=== PATIENT | male | born 1955 | race Caucasian/White ===

== ENCOUNTER 2017-07-27 14:45 | Inpatient (IN) | payer BC, MEDICARE ==
[2017-07-27] MEDS ORDERED: RX INFO: IV CONTRAST WAS GIVEN 1 EACH MISC MISCELLANE PRN (15:32)
[2017-07-27] MEDS ORDERED: HYDROmorphone 1 MG/ML 1 ML SYRINGE IVP STA ×2 (15:44→17:32)
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
[2017-07-27 16:01] LABS: Basophils % (A) 1 %; CH 36.6; CHCM 35.2; Eosinophils # (A) 0.2 k/uL (0-0.7); Eosinophils % (A) 4 %; HCT 45.4 % (39.0-53.0); HDW 2.81; HGB 15.9 gm/dL (13.0-17.5); Luc % (Auto) 2; Lymphocytes # (A) 1.2 k/uL (1.0-4.8); Lymphocytes % (A) 18 %; MCH 36.7 pg (25.0-35.0); MCHC 35.1 g/dL (31.0-37.0); MCV 104.7 fL (80.0-100.0); Macrocytosis Slight; Mean Platelet Volume 6.5; Monocytes # (A) 0.4 k/uL (0-1.0); Monocytes % (A) 6 %; Neutrophils # (A) 4.6 k/uL (1.3-7.7); Neutrophils % (A) 71 %; RBC 4.34 m/uL (4.30-5.90); RDW 13.2 % (11.5-15.5); WBC 6.5 k/uL (3.8-10.6); WBC (Perox) 6.19
[2017-07-27 16:12] LABS: ALT 95 U/L (21-72); AST 80 U/L (17-59); Alkaline Phosphatase 117 U/L (38-126); Anion Gap 12 mmol/L; Blood Urea Nitrogen 17 mg/dL (9-20); Calcium 9.1 mg/dL (8.4-10.2); Carbon Dioxide 23 mmol/L (22-30); Chloride 104 mmol/L (98-107); Glucose 199 mg/dL (74-99); Non-African American GFR(MDRD) >60 (>60 ml/min/1.73 sqM); Potassium 4.5 mmol/L (3.5-5.1); Sodium 139 mmol/L (137-145); Total Bilirubin 0.7 mg/dL (0.2-1.3); Total Protein 7.4 g/dL (6.3-8.2)
[2017-07-27 16:26] LABS: INR 1.1 (<1.2); Partial Thromboplastin Time 21.4 sec (22.0-30.0); Prothrombin Time 10.9 sec (9.0-12.0)
--- NOTE | 2017-07-27 16:33 | XR ---
EXAMINATION TYPE: XR forearm RT DATE OF EXAM: 07/27/2017 COMPARISON: NONE HISTORY: Pain Two views of the forearm demonstrate that the osseous structures appear to be intact and the joint sp aces appear to be preserved. There is no acute fracture or dislocation. Olecranon spur noted. IMPRESSION: 1. No acute fracture or dislocation
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
[2017-07-27] MEDS ORDERED: SODIUM CHLORIDE 0.9% 1,000 ML IV STA (17:32)
[2017-07-27] MEDS ORDERED: ACETAMINOPHEN IV (For NPO) 1,000 MG in SALINE 1 100ML.BAG IVPB ONE (18:06)
[2017-07-27] MEDS ORDERED: NALOXONE 0.4 MG/ML 1 ML VIAL IV PRN (18:06)
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
[2017-07-27 18:47] LABS: Creatine Kinase 297 U/L (55-170)
[2017-07-27 18:49] LABS: Glucose,Whole Blood 135 mg/dL (75-99)
[2017-07-27 19:00] LABS: Troponin I <0.012 ng/mL (0.000-0.034)
[2017-07-27 19:01] LABS: Creatine Kinase MB 5.6 ng/mL (0.0-2.4)
[2017-07-27] MEDS: HYDROmorphone 2 MG/ML 1 ML SYRINGE IVP PRN (21:46)
[2017-07-27 23:01] LABS: Appearance,Urine Clear (Clear); Bilirubin,Urine Negative (Negative); Glucose,Urine (UA) Negative (Negative); Ketones,Urine Negative (Negative); Leukocyte Esterase,Urine Negative (Negative); Nitrite,Urine Negative (Negative); PH, Urine 5.5 (5.0-8.0); Protein,Urine Trace (Negative); UA Billing (MACRO vs. MICRO) CHEM; Urobilinogen,Urine <2.0 mg/dL (<2.0)
[2017-07-27 23:49] VITALS: BMI 40.8
[2017-07-28 01:02] LABS: Specific Gravity,Urine >1.050 (1.001-1.035)
[2017-07-28] MEDS: HYDROmorphone 2 MG/ML 1 ML SYRINGE IVP PRN (02:54)
[2017-07-28 05:05] LABS: Basophils % (A) 0 %; CH 37.1; CHCM 34.7; Eosinophils # (A) 0.1 k/uL (0-0.7); Eosinophils % (A) 2 %; HCT 45.6 % (39.0-53.0); HDW 2.77; HGB 15.2 gm/dL (13.0-17.5); Luc % (Auto) 3; Lymphocytes # (A) 1.3 k/uL (1.0-4.8); Lymphocytes % (A) 20 %; MCH 35.8 pg (25.0-35.0); MCHC 33.3 g/dL (31.0-37.0); MCV 107.6 fL (80.0-100.0); Macrocytosis Moderate; Mean Platelet Volume 7.3; Monocytes # (A) 0.5 k/uL (0-1.0); Monocytes % (A) 8 %; Neutrophils # (A) 4.6 k/uL (1.3-7.7); Neutrophils % (A) 68 %; RBC 4.24 m/uL (4.30-5.90); RDW 13.9 % (11.5-15.5); WBC 6.8 k/uL (3.8-10.6); WBC (Perox) 6.29
[2017-07-28 05:12] LABS: INR 1.1 (<1.2); Prothrombin Time 11.4 sec (9.0-12.0)
[2017-07-28 05:14] LABS: Ionized Calcium 4.9 mg/dL (4.5-5.3)
[2017-07-28 05:19] LABS: Partial Thromboplastin Time 22.5 sec (22.0-30.0)
[2017-07-28 05:24] LABS: ALT 89 U/L (21-72); AST 65 U/L (17-59); Alkaline Phosphatase 111 U/L (38-126); Anion Gap 12 mmol/L; Blood Urea Nitrogen 17 mg/dL (9-20); Calcium 8.8 mg/dL (8.4-10.2); Carbon Dioxide 26 mmol/L (22-30); Chloride 105 mmol/L (98-107); Glucose 123 mg/dL (74-99); Magnesium 2.1 mg/dL (1.6-2.3); Non-African American GFR(MDRD) >60 (>60 ml/min/1.73 sqM); Phosphorous 4.1 mg/dL (2.5-4.5); Potassium 4.6 mmol/L (3.5-5.1); Sodium 143 mmol/L (137-145); Total Bilirubin 0.9 mg/dL (0.2-1.3); Total Protein 7.4 g/dL (6.3-8.2)
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
[2017-07-28] MEDS: PANTOPRAZOLE 40 MG/10 ML VIAL IV SCH (08:42)
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
[2017-07-28] MEDS ORDERED: KETOROLAC 30 MG/ML 1 ML VIAL IVP PRN (10:29)
[2017-07-28] MEDS: KETOROLAC 30 MG/ML 1 ML VIAL IVP PRN ×3 (10:51→23:29)
[2017-07-28] MEDS ORDERED: ONDANSETRON 4 MG/2 ML VIAL IVP PRN (11:51)
[2017-07-28] MEDS ORDERED: NALBUPHINE 10 MG/ML AMPUL IV PRN (11:51)
[2017-07-28] MEDS: BUPIVACAINE (PF) 0.5% 37.5 ML, fentaNYL (PF) 625 MCG in SODIUM CHLORIDE 0.9% 200 ML EPIDURAL PRN (12:22)
--- NOTE | 2017-07-28 13:34 | P.PCN ---
Date of Procedure: 07/28/17 Preoperative Diagnosis: traumatic rib fractures Postoperative Diagnosis: same Procedure(s) Performed: thoracic epidural catheter placement Anesthesia: local Surgeon: Yonas Mccullough Pathology: none sent Condition: stable Disposition: PACU Description of Procedure: The patient was seen and identified in the preoperative area. Risks, benefits, complications, and alternatives were discussed with the patient, including but not limited to bleeding, infection, nerve damage, allergic reactions to medications, and incomplete pain relief. The patient agreed to proceed with the procedure and signed the consent after all questions were answered. IV was started, and vital signs were stable. Patient was brought to the procedure area and time out was completed to confirm patient position, procedure, laterality of pain, and allergies. The patient was placed in the sitting position and a pillow was placed under the chest to reduce lumbar lordosis. The thoracic area was prepped and draped in the usual sterile fashion. Vital signs were closely monitored during the procedure. Using landmarks, the T6-T7 interlaminar space was identified and the skin over this site was marked and then infiltrated with 1% lidocaine subcutaneously in a right paramedian fashion. Subsequently, a 20-gauge 3.5-inch Tuohy epidural needle was inserted and advanced toward the epidural space using the Loss of resistance technique. After MARK was obtained at 7.5 cm from skin and after negative aspiration for blood and CSF, the space was dilated with 2 ml normal saline and the catheter was threaded into the space. Needle was then removed while counterthreading the catheter. In the absence of paresthesias, a test dose of PF 1.5% lidocaine with epinephrine was injected without any increase in heart rate or significant weakness in the lower extremities, and the patient had some relief of his right sided chest pain. Catheter was secured to the skin with Tegaderm and tape. COMPLICATIONS: None COMMENTS: DISPOSITION / PLANS: The patient was placed in a supine position and transferred to the back to the ICU in a stable condition for observation. There was no evidence of lower extremity motor or sensory deficit after the procedure. Epidural solution was ordered and the patient will be followed in the next 24 hours to evaluate his analgesia.
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
[2017-07-29 05:17] LABS: Basophils % (A) 0 %; CH 36.2; CHCM 33.6; Eosinophils # (A) 0.4 k/uL (0-0.7); Eosinophils % (A) 6 %; HCT 42.4 % (39.0-53.0); HDW 2.73; HGB 14.3 gm/dL (13.0-17.5); Luc # (Auto) 0.16; Luc % (Auto) 3; Lymphocytes # (A) 1.8 k/uL (1.0-4.8); Lymphocytes % (A) 29 %; MCH 36.6 pg (25.0-35.0); MCHC 33.8 g/dL (31.0-37.0); MCV 108.3 fL (80.0-100.0); Macrocytosis Moderate; Mean Platelet Volume 6.7; Monocytes # (A) 0.5 k/uL (0-1.0); Monocytes % (A) 8 %; Neutrophils # (A) 3.5 k/uL (1.3-7.7); Neutrophils % (A) 55 %; RBC 3.92 m/uL (4.30-5.90); RDW 13.2 % (11.5-15.5); WBC 6.3 k/uL (3.8-10.6); WBC (Perox) 6.37
[2017-07-29 05:20] LABS: Ionized Calcium 4.9 mg/dL (4.5-5.3)
[2017-07-29 05:24] LABS: ALT 76 U/L (21-72); AST 43 U/L (17-59); Alkaline Phosphatase 97 U/L (38-126); Anion Gap 9 mmol/L; Blood Urea Nitrogen 21 mg/dL (9-20); Calcium 8.8 mg/dL (8.4-10.2); Carbon Dioxide 23 mmol/L (22-30); Chloride 108 mmol/L (98-107); Glucose 101 mg/dL (74-99); Non-African American GFR(MDRD) >60 (>60 ml/min/1.73 sqM); Phosphorous 3.4 mg/dL (2.5-4.5); Sodium 140 mmol/L (137-145); Total Bilirubin 0.8 mg/dL (0.2-1.3); Total Protein 6.8 g/dL (6.3-8.2)
[2017-07-29 05:32] LABS: INR 1.1 (<1.2); Prothrombin Time 11.1 sec (9.0-12.0)
[2017-07-29 05:36] LABS: Partial Thromboplastin Time 18.2 sec (22.0-30.0)
[2017-07-29] MEDS ORDERED: Magnesium Replacement Protocol 1 EACH MISC MISCELLANE PRN (06:07)
[2017-07-29] MEDS: MAGNESIUM SULFATE-D5W PMX 1 GM in DEXTROSE/WATER 1 100ML.BAG IVPB SCH ×2 (07:11→08:36)
[2017-07-29] MEDS: PANTOPRAZOLE 40 MG/10 ML VIAL IV SCH (08:36)
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
[2017-07-29] MEDS: BUPIVACAINE (PF) 0.5% 37.5 ML, fentaNYL (PF) 625 MCG in SODIUM CHLORIDE 0.9% 200 ML EPIDURAL PRN (16:38)
[2017-07-29] MEDS: KETOROLAC 30 MG/ML 1 ML VIAL IVP PRN (17:19)
[2017-07-29 22:17] VITALS: RESP 16
[2017-07-30] MEDS: KETOROLAC 30 MG/ML 1 ML VIAL IVP PRN ×2 (05:38→20:49)
[2017-07-30] MEDS: diphenhydrAMINE 50 MG/ML 1 ML VIAL IVP PRN ×2 (05:39→20:49)
[2017-07-30 07:27] LABS: Basophils % (A) 0 %; CH 37.5; CHCM 35.3; Eosinophils # (A) 0.4 k/uL (0-0.7); Eosinophils % (A) 6 %; HCT 41.2 % (39.0-53.0); HDW 2.73; HGB 13.8 gm/dL (13.0-17.5); Luc # (Auto) 0.19; Luc % (Auto) 3; Lymphocytes # (A) 1.2 k/uL (1.0-4.8); Lymphocytes % (A) 18 %; MCH 35.7 pg (25.0-35.0); MCHC 33.4 g/dL (31.0-37.0); MCV 106.8 fL (80.0-100.0); Macrocytosis Moderate; Mean Platelet Volume 7.3; Monocytes # (A) 0.4 k/uL (0-1.0); Monocytes % (A) 6 %; Neutrophils # (A) 4.4 k/uL (1.3-7.7); Neutrophils % (A) 66 %; RBC 3.85 m/uL (4.30-5.90); RDW 13.4 % (11.5-15.5); WBC 6.7 k/uL (3.8-10.6); WBC (Perox) 7.08
[2017-07-30 07:49] LABS: Ionized Calcium 4.7 mg/dL (4.5-5.3)
[2017-07-30 07:50] LABS: INR 1.1 (<1.2); Partial Thromboplastin Time 23.4 sec (22.0-30.0); Prothrombin Time 10.9 sec (9.0-12.0)
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
[2017-07-30 08:15] LABS: ALT 67 U/L (21-72); AST 49 U/L (17-59); Alkaline Phosphatase 88 U/L (38-126); Anion Gap 9 mmol/L; Blood Urea Nitrogen 20 mg/dL (9-20); Calcium 8.5 mg/dL (8.4-10.2); Carbon Dioxide 22 mmol/L (22-30); Chloride 107 mmol/L (98-107); Glucose 94 mg/dL (74-99); Magnesium 1.9 mg/dL (1.6-2.3); Non-African American GFR(MDRD) >60 (>60 ml/min/1.73 sqM); Phosphorous 3.9 mg/dL (2.5-4.5); Potassium 4.2 mmol/L (3.5-5.1); Sodium 138 mmol/L (137-145); Total Bilirubin 1.1 mg/dL (0.2-1.3); Total Protein 6.3 g/dL (6.3-8.2)
[2017-07-30] MEDS: PANTOPRAZOLE 40 MG TABLET PO SCH (09:06)
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
[2017-07-30] MEDS: MAGNESIUM SULFATE-D5W PMX 1 GM in DEXTROSE/WATER 1 100ML.BAG IVPB SCH ×2 (10:54→12:00)
[2017-07-30] MEDS: BUPIVACAINE (PF) 0.5% 37.5 ML, fentaNYL (PF) 625 MCG in SODIUM CHLORIDE 0.9% 200 ML EPIDURAL PRN (12:36)
--- NOTE | 2017-07-30 16:21 | P.PN ---
Progress Note - Text The patient is resting comfortably in his chair. He has no significant complaints. His chest x-ray shows stable 10% pneumothorax On exam his vital signs are stable. His abdomen soft. Chest is clear. Patient will have removal of his epidural tomorrow. If he is doing well he'll be discharged home.
[2017-07-31 07:12] VITALS: TEMP 98
[2017-07-31] MEDS: PANTOPRAZOLE 40 MG TABLET PO SCH (08:42)
[2017-07-31 08:43] LABS: Basophils % (A) 1 %; CH 36.6; CHCM 34.7; Eosinophils # (A) 0.6 k/uL (0-0.7); Eosinophils % (A) 9 %; HCT 44.6 % (39.0-53.0); HDW 2.85; HGB 15.6 gm/dL (13.0-17.5); Luc # (Auto) 0.15; Luc % (Auto) 2; Lymphocytes # (A) 1.3 k/uL (1.0-4.8); Lymphocytes % (A) 20 %; MCHC 34.9 g/dL (31.0-37.0); MCV 106.1 fL (80.0-100.0); Macrocytosis Moderate; Mean Platelet Volume 6.5; Monocytes # (A) 0.4 k/uL (0-1.0); Monocytes % (A) 5 %; Neutrophils # (A) 4.2 k/uL (1.3-7.7); Neutrophils % (A) 64 %; RBC 4.21 m/uL (4.30-5.90); WBC 6.6 k/uL (3.8-10.6); WBC (Perox) 6.86
[2017-07-31 08:53] LABS: INR 1.1 (<1.2); Partial Thromboplastin Time 23.6 sec (22.0-30.0)
[2017-07-31 09:04] LABS: ALT 79 U/L (21-72); AST 50 U/L (17-59); Alkaline Phosphatase 114 U/L (38-126); Anion Gap 10 mmol/L; Blood Urea Nitrogen 20 mg/dL (9-20); Carbon Dioxide 25 mmol/L (22-30); Chloride 103 mmol/L (98-107); Glucose 90 mg/dL (74-99); Non-African American GFR(MDRD) >60 (>60 ml/min/1.73 sqM); Phosphorous 3.8 mg/dL (2.5-4.5); Potassium 4.2 mmol/L (3.5-5.1); Sodium 138 mmol/L (137-145); Total Bilirubin 1.2 mg/dL (0.2-1.3)
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
[2017-07-31 09:14] LABS: Ionized Calcium 4.9 mg/dL (4.5-5.3)
[2017-07-31] MEDS: BUPIVACAINE (PF) 0.5% 37.5 ML, fentaNYL (PF) 625 MCG in SODIUM CHLORIDE 0.9% 200 ML EPIDURAL PRN (11:45)
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
[2017-07-31] MEDS ORDERED: HYDROcodone/APAP 7.5-325MG 1 EACH TAB PO PRN (12:12)
[2017-07-31 14:46] VITALS: BP 132/79; PULSE 74
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
== END 2017-07-31 18:45 | disposition home or self-care (01) | DRG 199 ==
LOC: EC 14:45 → 6ICU 18:09 → 3SUR 07-29 15:24
PROVIDERS: ADMIT Surgery; ATTEND Surgery
PROC: 3E0R3CZ (ICD-10-PCS; 2017-07-28)
PROC: 00HU33Z Insertion of Infusion Device into Spinal Canal, Percutaneous Approach (ICD-10-PCS; principal; 2017-07-28 11:00)
DX: S27.0XXA Traumatic pneumothorax, initial encounter (principal); S22.5XXA Flail chest, initial encounter for closed fracture; J98.11 Atelectasis; G62.9 Polyneuropathy, unspecified; S50.11XA Contusion of right forearm, initial encounter; G25.81 Restless legs syndrome; E78.5 Hyperlipidemia, unspecified; I10 Essential (primary) hypertension; F32.9 Major depressive disorder, single episode, unspecified; F41.9 Anxiety disorder, unspecified; Z79.899 Other long term (current) drug therapy; Z96.652 Presence of left artificial knee joint; Z87.891 Personal history of nicotine dependence; V86.59XA Driver of other special all-terrain or other off-road motor vehicle injured in nontraffic accident, initial encounter
CPT/HCPCS: 36415; 62325; 71010; 71260; 74177; 80053; 80306; 80320; 81003; 82330; 82550; 82553; 83735; 84100; 84484; 85025; 85610; 85730; 86850; 86900; 86901; 94760; 96361; 96374; 96376; 99285

== ENCOUNTER → 2018-12-05 | Outpatient (CLI) | payer MEDICARE, BC ==
[~2018-12-05] MED LIST: REGADENOSON 0.4 MG/5 ML SYRINGE IV ONE
--- NOTE | 2018-12-05 11:34 | NM ---
EXAMINATION TYPE: NM stress cardiolite complete DATE OF EXAM: 12/05/2018 COMPARISON: NONE HISTORY: Precordial chest pain and abnormal EKG TECHNIQUE: After the intravenous administration of 10.2 mCi Tc 99m Sestamibi - Rest images obtained 75 minutes post injection. The patient exercised using a DIOMEDES protocol and 1 minute prior to peak exercise was injected with 26.7 mCi Tc 99m Sestamibi - Stress images obtained 35 minutes post injecti on. FINDINGS: Targeted heart rate was achieved during performance of the study. Review of stress and rest SPECT andrea ges decreased perfusion at stress imaging involving the anteroseptal wall and cardiac apex compatible with stress-induced ischemia. Gated analysis shows normal wall motion with an estimated left ventric ular ejection fraction of 54 %. IMPRESSION: Stress induced ischemia involving the anteroseptal wall and cardiac apex.
--- NOTE | 2018-12-06 10:59 | EST ---
- Stress Test Note Stress Test Results/Findings: Exam Performed: NM stress lexiscan cardiolite Exam Date: 12/05/18 Reason for Exam: Dyspnea Height: 5 ft 10 in Weight: 129.274 kg Protocol: Mary Scan Stage: na Duration of Exercise: na Resting Heart Rate: 61 Resting Blood Pressure: 116/68 Maximum Achieved Heart Rate: 74 Maximum Achieved Blood Pressure: 126/76 85% PMHR: na 100% PMHR: na METS: na Technologist Comment: Stress Test Results/Findings: Baseline heart rate 61 beats a minute Baseline blood pressure 116/68 mmHg The center ECG shows sinus rhythm without any ST segment abnormalities Patient received Lexiscan infusion per protocol no ECG evidence for ischemia no arrhythmias noted very occasional PVCs Nuclear portion will be reported separately MTDD
== END | disposition home or self-care (01) ==
LOC: RADNMMAIN 07:43
PROVIDERS: ATTEND Internal Medicine
DX: I25.89 Other forms of chronic ischemic heart disease (principal)
CPT/HCPCS: 93017; 78452; A9500

== ENCOUNTER → 2018-12-12 | Outpatient (CLI) | payer MEDICARE, BC ==
[2018-12-12 12:33] LABS: HCT 44.1 % (39.0-53.0); HGB 15.1 gm/dL (13.0-17.5); MCH 35.7 pg (25.0-35.0); MCHC 34.3 g/dL (31.0-37.0); Macrocytosis Slight; Mean Platelet Volume 6.1; Platelet Count 205 k/uL (150-450); RBC 4.24 m/uL (4.30-5.90); RDW 12.9 % (11.5-15.5); WBC 4.8 k/uL (3.8-10.6)
[2018-12-12 13:05] LABS: Anion Gap 9 mmol/L; Blood Urea Nitrogen 15 mg/dL (9-20); Carbon Dioxide 25 mmol/L (22-30); Chloride 106 mmol/L (98-107); Potassium 4.5 mmol/L (3.5-5.1); Sodium 140 mmol/L (137-145)
== END | disposition home or self-care (01) ==
LOC: LABPAT 11:01
PROVIDERS: ATTEND Internal Medicine Cardiovascular Disease
DX: Z01.812 Encounter for preprocedural laboratory examination (principal); E78.2 Mixed hyperlipidemia; I10 Essential (primary) hypertension; I20.9 Angina pectoris, unspecified
CPT/HCPCS: 36415; 80051; 82565; 84520; 85027

== ENCOUNTER → 2018-12-19 | Day surgery (SDC) | payer MEDICARE, BC ==
[2018-12-12 15:12] VITALS: BMI 40.8
[~2018-12-19] MED LIST changes: +ALPRAZolam 0.25 MG TAB PO PRN; +ALPRAZolam 0.5 MG TAB PO PRN; +ASPIRIN 325 MG TAB PO STA; +ATORVASTATIN 80 MG TAB PO STA; +HEPARIN SODIUM 1,000 UN/ML (10ML VL) IV ONE; +HEPARIN SODIUM 1,000 UN/ML (10ML VL) ONE; +IOPAMIDOL-370 125ML BTL INJ ONE; +LIDOCAINE 1% INJ 10MG/ML (20 ML MDV) ONE; +LIDOCAINE 1% INJ 10MG/ML (20 ML MDV) SQ ONE; +MIDAZOLAM 2 MG/2 ML VIAL IVP ONE; +NITROGLYCERIN SL TABS 0.4 MG TAB SUBLINGUAL PRN; -REGADENOSON 0.4 MG/5 ML SYRINGE IV ONE; +RX INFO: IV CONTRAST WAS GIVEN 1 EACH MISC MISCELLANE PRN; +SODIUM CHLORIDE 0.9% 1,000 ML IV SCH; +SODIUM CHLORIDE 0.9% 1,000 ML in EMPTY BAG 1 BAG IV ONE; +VERAPAMIL 2.5 MG/ML 2 ML AMP ONE; +fentaNYL (PF) 50 MCG/ML 2 ML AMP IV ONE; +fentaNYL (PF) 50 MCG/ML 2 ML AMP ONE
[2018-12-19 07:01] VITALS: RESP 18; TEMP 98
[2018-12-19] MEDS: VERAPAMIL SYRINGE (5 MG/10 ML) INTRAARTER ONE ×2 (08:06→08:53)
--- NOTE | 2018-12-19 08:52 | P.CARDCATH ---
Date of Procedure: 12/19/18 Preoperative Diagnosis: Recent onset angina, exertional. Positive stress test Postoperative Diagnosis: Significant lesion involving the LAD and diagonal Procedure(s) Performed: Left heart catheterization without left ventriculography Description of Procedure: HISTORY: This is a 63-year-old gentleman with history of hypertension and hyperlipidemia and family history of ischemic heart disease and also previous history of smoking who was recently experiencing exertional shortness of breath and left arm discomfort. The patient had a stress test at the hospital which showed evidence of ischemia involving the anteroseptal area. Patient is advised to have a cardiac catheterization for definitive diagnosis CONSENT:I have discussed the risks, benefits and alternative therapies for the above-mentioned procedure and for both sedation/analgesia as well as necessary blood product administration, if indicated, as they pertain to this patient. The patient has indicated understanding and acceptance of the risks and procedures discussed. PROCEDURE: Patient was brought to the lab in a fasting state. Patient was given some IV sedation. The right wrist is infiltrated with lidocaine and right radial artery was entered using Seldinger technique. A 6-Russian catheter was left in place and selective coronary arteriography was performed. Patient tolerated the procedure well. TR band was applied for hemostasis. No immediate complications were noted and patient was transferred to [facility] in a stable condition. Conscious Sedation: Versed 1mg Fentanyl 75 g Duration 30minutes HEMODYNAMICS: The aortic pressure is about 130/70. Left ventricle end- diastolic pressure is about 25. There was no gradient across the aortic valve SELECTIVE CORONARY ARTERIOGRAPHY: LEFT MAIN: Ectatic and dilated. There appears to be an eccentric plaque in circumflex views. THE LEFT ANTERIOR DESCENDING CORONARY ARTERY: Heavily calcified and diffuse disease involving the proximal portion with 80% stenosis proximally followed by a 99% stenosis. The distal LAD appears to be relatively small in caliber but could be related to slow flow THE LEFT CIRCUMFLEX AND IS CORONARY ARTERY: Good caliber vessel giving rise to a reasonable good-sized OM branch. There is mild diffuse disease with about 50-60% stenosis of the OM branch THE RIGHT CORONARY ARTERY: Dominent vessel giving rise to PDA and PLV. Mild diffuse disease especially involving the distal branches of PLV and PDA. LEFT VENTRICULOGRAPHY: Was not performed FINAL IMPRESSION: Diffuse disease with heavily calcified and left coronary system. 99% stenosis of the LAD and about 95% stenosis of the diagonal. There is an intermediate disease in the OM branch of the circumflex. The left main is ectatic possible eccentric plaque PLAN:. The films are reviewed with the Dr. Irene the division head parent partner. He felt patient is better off having bypass surgery. A surgical opinion is being of obtained. PROGNOSIS: Guarded
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
--- NOTE | 2018-12-19 11:13 | US ---
EXAMINATION TYPE: US carotid duplex BILAT DATE OF EXAM: 12/19/2018 COMPARISON: NONE CLINICAL HISTORY: Pre-Op Surgery, Ankle Brachial Index ([place]) . EXAM MEASUREMENTS: RIGHT: Peak Systolic Velocity (PSV) cm/sec ----- Right CCA: 63.6 ----- Right ICA: 70.2 ----- Right ECA: 77.9 ICA/CCA ratio: 1.1 RIGHT: End Diastole cm/sec ----- Right CCA: 16.4 ----- Right ICA: 23.0 ----- Right ECA: 12.0 LEFT: Peak Systolic Velocity (PSV) cm/sec ----- Left CCA: 95.1 ----- Left ICA: 104.7 ----- Left ECA: 81.3 ICA/CCA ratio: 1.1 LEFT: End Diastole cm/sec ----- Left CCA: 0.0 ----- Left ICA: 18.0 ----- Left ECA: 12.5 VERTEBRALS (direction of flow): Right Vertebral: Antegrade Left Vertebral: Antegrade Rhythm: Normal Mild plaque, no significant velocity elevations. IMPRESSION: Mild plaque with no significant hemodynamic stenosis identified bilaterally. Criteria for Assigning % of Stenosis / Diameter reduction (Estimation based on the indirect measurements of the internal carotid artery velocities (ICA PSV). 1. Normal (no stenosis)=ICA PSV < 125 cm/s: ratio < 2.0: ICA EDV<40 cm/s. 2. Less than 50% stenosis=ICA PSV < 125 cm/s: ratio < 2.0: ICA EDV<40 cm/s. 3. 50 to 69% stenosis=ICA PSV of 125 to 230 cm/s: ration 2.0 ? 4.0: ICA EDV 40-100 cm/s. 4. Greater than 70% stenosis to near occlusion= ICA PSV > 230 cm/s: ratio > 4.0: ICA EDV > 100 cm/s. 5. Near occlusion= ICA PSV velocities may be low or undetectable: variable ratio and ICA EDV. 6. Total occlusion=unable to detect flow.
[2018-12-19 11:58] VITALS: PULSE 58
[2018-12-19 12:00] VITALS: BP 109/64
--- NOTE | 2018-12-19 13:19 | XR ---
EXAMINATION TYPE: XR chest 1V portable DATE OF EXAM: 12/19/2018 COMPARISON: 07/31/2017 HISTORY: Preop TECHNIQUE: Single frontal view of the chest is obtained. FINDINGS: Chronic bilateral rib deformities are seen. The heart is enlarged and there is a diffuse i nterstitial pattern. Postsurgical change left shoulder. No pneumothorax. No new consolidation. IMPRESSION: 1. Chronic appearing interstitial changes may been the basis of pulmonary fibrosis. Interstitial pneu monitis or venous congestion in the differential diagnosis, correlate clinically.
[2018-12-19 13:43] LABS: Basophils % (A) 1 %; Eosinophils # (A) 0.3 k/uL (0-0.7); Eosinophils % (A) 6 %; HCT 43.7 % (39.0-53.0); Lymphocytes # (A) 1.8 k/uL (1.0-4.8); Lymphocytes % (A) 39 %; MCH 35.5 pg (25.0-35.0); MCHC 34.3 g/dL (31.0-37.0); MCV 103.4 fL (80.0-100.0); Macrocytosis Slight; Monocytes # (A) 0.3 k/uL (0-1.0); Monocytes % (A) 8 %; Neutrophils # (A) 1.9 k/uL (1.3-7.7); Neutrophils % (A) 43 %; Platelet Count 179 k/uL (150-450); RBC 4.23 m/uL (4.30-5.90); WBC 4.5 k/uL (3.8-10.6)
[2018-12-19 13:54] LABS: Partial Thromboplastin Time 23.5 sec (22.0-30.0); Prothrombin Time 10.7 sec (9.0-12.0)
[2018-12-19 14:13] LABS: ALT 46 U/L (21-72); AST 35 U/L (17-59); Albumin 3.9 g/dL (3.5-5.0); Alkaline Phosphatase 89 U/L (38-126); Anion Gap 6 mmol/L; Blood Urea Nitrogen 21 mg/dL (9-20); Calcium 8.8 mg/dL (8.4-10.2); Carbon Dioxide 28 mmol/L (22-30); Chloride 105 mmol/L (98-107); Cholesterol 161 mg/dL (<200); Glucose 126 mg/dL (74-99); HDL Cholesterol 28 mg/dL (40-60); Magnesium 2.2 mg/dL (1.6-2.3); Potassium 4.4 mmol/L (3.5-5.1); Sodium 139 mmol/L (137-145); Total Bilirubin 0.7 mg/dL (0.2-1.3); Total Protein 6.8 g/dL (6.3-8.2); Triglycerides 449 mg/dL (<150)
[2018-12-19 14:37] LABS: Appearance,Urine Clear (Clear); Bilirubin,Urine Negative (Negative); Blood,Urine Negative (Negative); Color,Urine Yellow; Glucose,Urine (UA) Trace (Negative); Ketones,Urine Negative (Negative); Leukocyte Esterase,Urine Negative (Negative); Nitrite,Urine Negative (Negative); PH, Urine 6.5 (5.0-8.0); Protein,Urine Negative (Negative); Specific Gravity,Urine 1.038 (1.001-1.035); Urobilinogen,Urine <2.0 mg/dL (<2.0)
[2018-12-19 22:22] LABS: Hemoglobin A1C 5.8 % (4.0-6.0)
[2018-12-19 22:24] LABS: Hepatitis A Antibody IgM Non-Reactive (Non-Reactive); Hepatitis B Core IgM Non-Reactive (Non-Reactive)
--- NOTE | 2018-12-20 12:37 | ECHOF ---
Referral Reason:preop CABG, assess LV, valves MEASUREMENTS -------- HEIGHT: 177.8 cm WEIGHT: 129.3 kg BP: 109/62 RVIDd: 3.3 cm (< 3.3) IVSd: 1.1 cm (0.6 - 1.1) LVIDd: 4.2 cm (3.9 - 5.3) LVPWd: 1.1 cm (0.6 - 1.1) IVSs: 1.5 cm LVIDs: 2.4 cm LVPWs: 1.6 cm LAESV Index (A-L): 24.33 ml/m Ao Diam: 3.5 cm (2.0 - 3.7) AV Cusp: 1.8 cm (1.5 - 2.6) LA Diam: 3.7 cm (2.7 - 3.8) MV E Estiven: 0.79 m/s MV DecT: 264 ms MV A Estiven: 0.91 m/s MV E/A Ratio: 0.86 RAP: 5.00 mmHg RVSP: 27.63 mmHg MV EF SLOPE: 101.89 mm/s (70 - 150) MV EXCURSION: 1.85 cm (> 18.000) FINDINGS -------- Sinus rhythm. This was a technically difficult study with suboptimal views. The left ventricular size is normal. There is borderline concentric left ventricular hypertrophy. Overall left ventricular systolic function is normal with, an EF between 55 - 60 %. The right ventricle is mildly enlarged. Normal LA size by volume 22+/-6 ml/m2. The right atrium was not well visualized. 3 ml of Lumason was utilized for enhancement of images. There is mild aortic valve sclerosis. There is no evidence of aortic regurgitation. There is no e vidence of aortic stenosis. The mitral valve leaflets are mildly thickened. There is trace to mild mitral regurgitation. Trace tricuspid regurgitation present. Right ventricular systolic pressure is normal at < 35 mmHg. There is no evidence of pulmonary hypertension. The pulmonic valve was not well visualized. The aortic root size is normal. Normal inferior vena cava with normal inspiratory collapse consistent with estimated right atrial pre ssure of 5 mmHg. There is no pericardial effusion. CONCLUSIONS -------- 1. Sinus rhythm. 2. This was a technically difficult study with suboptimal views. 3. The left ventricular size is normal. 4. There is borderline concentric left ventricular hypertrophy. 5. Overall left ventricular systolic function is normal with, an EF between 55 - 60 %. 6. The right ventricle is mildly enlarged. 7. Normal LA size by volume 22+/-6 ml/m2. 8. The right atrium was not well visualized. 9. 3 ml of Lumason was utilized for enhancement of images. 10. There is mild aortic valve sclerosis. 11. The mitral valve leaflets are mildly thickened. 12. There is trace to mild mitral regurgitation. 13. Trace tricuspid regurgitation present. 14. Right ventricular systolic pressure is normal at < 35 mmHg. 15. There is no evidence of pulmonary hypertension. 16. The pulmonic valve was not well visualized. 17. The aortic root size is normal. 18. There is no pericardial effusion. STEVEDORING SUPERVISOR: Georgi Gautam RDCS
== END | disposition home or self-care (01) ==
LOC: CATHCVL 06:26
PROVIDERS: ATTEND Internal Medicine Cardiovascular Disease
DX: I25.110 Atherosclerotic heart disease of native coronary artery with unstable angina pectoris (principal); I10 Essential (primary) hypertension; E78.5 Hyperlipidemia, unspecified; F17.211 Nicotine dependence, cigarettes, in remission; G47.33 Obstructive sleep apnea (adult) (pediatric); G25.81 Restless legs syndrome; E66.01 Morbid (severe) obesity due to excess calories; E78.00 Pure hypercholesterolemia, unspecified; F32.9 Major depressive disorder, single episode, unspecified; Z82.49 Family history of ischemic heart disease and other diseases of the circulatory system; Z96.652 Presence of left artificial knee joint; Z99.89 Dependence on other enabling machines and devices; Z79.899 Other long term (current) drug therapy; Z87.01 Personal history of pneumonia (recurrent); Z79.82 Long term (current) use of aspirin; Z87.81 Personal history of (healed) traumatic fracture; Z68.41 Body mass index [BMI] 40.0-44.9, adult
CPT/HCPCS: 94150; 93458; 80061; 80053; 80074; 84443; 83735; 85025; 85610; 85730; 81003; 87070; 83036; 71045; 93970; 93880; C8929; C1894 ×2; C1769 ×2; J2250; J2001; J3010; J1644; Q9950; Q9967; 93306

== ENCOUNTER → 2019-01-03 | Outpatient (CLI) | payer MEDICARE, BC ==
[2019-01-03 11:07] LABS: HCT 45.3 % (39.0-53.0); HGB 15.2 gm/dL (13.0-17.5); MCH 34.8 pg (25.0-35.0); MCHC 33.4 g/dL (31.0-37.0); MCV 104.2 fL (80.0-100.0); Macrocytosis Slight; Platelet Count 202 k/uL (150-450); RBC 4.35 m/uL (4.30-5.90); RDW 13.2 % (11.5-15.5); WBC 5.2 k/uL (3.8-10.6)
[2019-01-03 11:13] LABS: Partial Thromboplastin Time 23.6 sec (22.0-30.0); Prothrombin Time 10.6 sec (9.0-12.0)
[2019-01-03 11:27] LABS: ALT 47 U/L (21-72); AST 32 U/L (17-59); Albumin 4.2 g/dL (3.5-5.0); Alkaline Phosphatase 111 U/L (38-126); Anion Gap 9 mmol/L; Blood Urea Nitrogen 17 mg/dL (9-20); Calcium 9.2 mg/dL (8.4-10.2); Carbon Dioxide 25 mmol/L (22-30); Chloride 107 mmol/L (98-107); Glucose 114 mg/dL (74-99); Potassium 4.4 mmol/L (3.5-5.1); Sodium 141 mmol/L (137-145); Total Bilirubin 0.7 mg/dL (0.2-1.3); Total Protein 7.5 g/dL (6.3-8.2)
--- NOTE | 2019-01-11 08:57 | P.ARTDOP ---
Arterial Doppler Bilateral radial artery studies Date of study: 01/03/2019 Reason for study: Preop CABG Doppler assessment shows no significant right to left or segmental pressure gradients. Digital plethysmography with radial artery compression shows a dramatic decrease in pressure and signal with right radial artery compression. There are no significant changes on the left. Imaging shows the size on the right radial between 4.0 x 3.0 distally to 3.8 x 4.0 proximally. On the left it measures between 3.4 x 3.0 distally and 3.6 x 3.1 proximally Impression: Right radial artery is not usable. The left appears to be usable by size and collateralization.
== END | disposition home or self-care (01) ==
LOC: LABPAT 10:13
PROVIDERS: ATTEND Surgery
DX: Z01.818 Encounter for other preprocedural examination (principal); I25.10 Atherosclerotic heart disease of native coronary artery without angina pectoris; Z01.812 Encounter for preprocedural laboratory examination
CPT/HCPCS: 36415; 80053; 85027; 85610; 85730; 93923; 93930

== ENCOUNTER 2019-01-09 05:40 | Inpatient (IN) | payer MEDICARE, BC ==
[~2019-01-09 05:40] MED LIST changes: +ALBUMIN HUMAN 25% 50 ML IV ONE; +ALBUMIN HUMAN 5% 500 ML IVPB ONE; -ALPRAZolam 0.25 MG TAB PO PRN; -ALPRAZolam 0.5 MG TAB PO PRN; +ASPIRIN 325 MG TAB PO ONE; -ASPIRIN 325 MG TAB PO STA; +ATORVASTATIN 10 MG TAB PO ONE; -ATORVASTATIN 80 MG TAB PO STA; +CALCIUM CHLORIDE 100 MG/ML 10 ML SYRINGE IV ONE; +CHLORHEXIDINE GLUCONATE 15 ML CUP MUCOUS MEM ONE; +CLEVIDIPINE BUTYRATE 25 MG in EMPTY BAG 1 BAG IV ONE; +DEXTROSE 5% IN WATER 1,000 ML with POTASSIUM CHLORIDE 110 MEQ, MAGNESIUM SULFATE 16 MEQ... IV ONE; +DEXTROSE 5% IN WATER 1,000 ML with POTASSIUM CHLORIDE 25 MEQ, SODIUM CHLORIDE 2.5MEQ/ML... IRRIGATION ONE; +DILTIAZEM 125 MG in SODIUM CHLORIDE 0.9% 100 ML IV ONE; -HEPARIN SODIUM 1,000 UN/ML (10ML VL) ONE; +HEPARIN SODIUM,PORCINE 5,000 UNIT in SODIUM CHLORIDE 0.9% 500 ML 500 ML IV ONE; +INSULIN REGULAR 100 UNIT in SODIUM CHLORIDE 0.9% 100 ML IV ONE; -IOPAMIDOL-370 125ML BTL INJ ONE; +LACTATED RINGERS 1,000 ML IV ONE; -LIDOCAINE 1% INJ 10MG/ML (20 ML MDV) ONE; -LIDOCAINE 1% INJ 10MG/ML (20 ML MDV) SQ ONE; +MAGNESIUM SULFATE MG 500 MG/ML IV ONE; +MANNITOL 25% 12.5 GM/50 ML VIAL IV ONE; +METOPROLOL TARTRATE 12.5 MG TAB PO ONE; -MIDAZOLAM 2 MG/2 ML VIAL IVP ONE; +MUPIROCIN 2% OINT 22 GM TUBE NASAL ONE; +NITROGLYCERIN SL TABS 0.4 MG TAB SUBLINGUAL ONE; -NITROGLYCERIN SL TABS 0.4 MG TAB SUBLINGUAL PRN; +NITROGLYCERIN-D5W PMX 25 MG/250 ML BTL IV ONE; +NITROGLYCERIN-D5W PMX 50 MG in DEXTROSE/WATER 1 250ML.BAG IV ONE; +NOREPINEPHRINE 4 MG in SODIUM CHLORIDE 0.9% 250 ML IV ONE; +PAPAVERINE 360 MG in SODIUM CHLORIDE 0.9% 90 ML IV ONE; +PHENYLEPHRINE 40 MG in SODIUM CHLORIDE 0.9% 250 ML IV ONE; +PHENYLEPHRINE-0.9% NACL SYG 1 MG/10 ML SYRINGE IV ONE; +PROPOFOL 1,000 MG/100 ML VIAL IV ONE; +PROTAMINE SULFATE 10 MG/ML 25 ML VIAL IV ONE; +PROTAMINE SULFATE 250 MG in EMPTY BAG 1 BAG IV ONE; -RX INFO: IV CONTRAST WAS GIVEN 1 EACH MISC MISCELLANE PRN; +SODIUM BICARB 8.4% 50 ML SYR (1 MEQ/ML) IV ONE; +SODIUM CHLORIDE 0.9% 1,000 ML IV ONE; -SODIUM CHLORIDE 0.9% 1,000 ML IV SCH; -SODIUM CHLORIDE 0.9% 1,000 ML in EMPTY BAG 1 BAG IV ONE; +TRANEXAMIC ACID 2,000 MG in SODIUM CHLORIDE 0.9% 180 ML IV ONE; -VERAPAMIL 2.5 MG/ML 2 ML AMP ONE; +ceFAZolin 1,000 MG in SODIUM CHLORIDE 0.9% IRRIGATIO 1,000 ML IRRIGATION ONE; +ceFAZolin 2,000 MG in SODIUM CHLORIDE 0.9% 30 ML IVPB ONE; +ceFAZolin 3 GM in SODIUM CHLORIDE 0.9% 30 ML IVPB ONE; -fentaNYL (PF) 50 MCG/ML 2 ML AMP IV ONE; -fentaNYL (PF) 50 MCG/ML 2 ML AMP ONE
[2019-01-09] MEDS ORDERED: ePHEDrine SULFATE/0.9% NACL/PF 50 MG/5 ML SYRINGE IV ONE (08:14)
[2019-01-09] MEDS ORDERED: MIDAZOLAM 2 MG/2 ML VIAL ONE (08:14)
[2019-01-09] MEDS ORDERED: HEPARIN SODIUM,PORCINE 10,000 UNIT/ML 1 ML VIAL ONE (08:14)
[2019-01-09] MEDS ORDERED: fentaNYL (PF) 50 MCG/ML 50 ML VIAL ONE (08:14)
[2019-01-09] MEDS ORDERED: PHENYLEPHRINE-0.9% NACL SYG 1 MG/10 ML SYRINGE ONE (08:14)
[2019-01-09] MEDS ORDERED: PROPOFOL 10 MG/ML 20 ML VIAL IV ONE (08:14)
[2019-01-09] MEDS ORDERED: MAGNESIUM SULFATE 4 MEQ/ML 10ML VIAL ONE (08:14)
[2019-01-09] MEDS ORDERED: ALBUMIN HUMAN 5% (12.5gm) 250 ML BOTTLE IVPB ONE (08:14)
[2019-01-09] MEDS ORDERED: ceFAZolin 1,000 MG VIAL ONE (08:14)
[2019-01-09] MEDS ORDERED: CALCIUM CHLORIDE 100 MG/ML 10 ML SYRINGE ONE (08:14)
[2019-01-09] MEDS ORDERED: fentaNYL (PF) 50 MCG/ML 2 ML AMP ONE (08:14)
[2019-01-09] MEDS ORDERED: SODIUM CHLORIDE 0.9% 250 ML BAG ONE (08:14)
[2019-01-09] MEDS ORDERED: LIDOCAINE 2% SYG (PF) 100 MG/5 ML ONE (08:14)
[2019-01-09] MEDS ORDERED: TRANEXAMIC ACID 1,000 MG/10 ML VIAL ONE (08:14)
[2019-01-09] MEDS ORDERED: VECURONIUM 10 MG VIAL IV ONE (08:14)
[2019-01-09] MEDS ORDERED: SODIUM CHLORIDE 0.9% IRRIG 1,000 ML BTL IRRIGATION ONE (08:14)
[2019-01-09] MEDS ORDERED: ELECTROLYTE-R (PH 7.4) 1,000 ML IV.SOLN IV ONE (08:14)
[2019-01-09] MEDS ORDERED: PROTAMINE SULFATE 10 MG/ML 25 ML VIAL IV ONE (08:14)
[2019-01-09 08:53] LABS: ABG Base Excess -0.1 mmol/L; ABG HCO3 25 mmol/L (21-25); ABG Oxygen Saturation 99.5 % (94-97); ABG PCO2 39 mmHg (35-45); ABG PO2 133 mmHg (83-108); ABG Sodium Whole Blood 139 mmol/L (135-146); ABG TCO2 26 mmol/L (19-24)
[2019-01-09] MEDS ORDERED: SODIUM CHLORIDE 0.9% 500 ML 500 ML with HEPARIN SODIUM,PORCINE 5,000 UNIT IV ONE ×2 (10:44)
[2019-01-09] MEDS ORDERED: PAPAVERINE 360 MG in SODIUM CHLORIDE 0.9% 90 ML IV ONE (10:44)
[2019-01-09] MEDS ORDERED: ceFAZolin 1,000 MG in SODIUM CHLORIDE 0.9% 1,000 ML IRRIGATION ONE (10:57)
[2019-01-09 11:18] LABS: ABG Base Excess -2.8 mmol/L; ABG HCO3 24 mmol/L (21-25); ABG Oxygen Saturation 99.5 % (94-97); ABG PCO2 48 mmHg (35-45); ABG PO2 157 mmHg (83-108); ABG Potassium Whole Blood 4.1 mmol/L (3.4-4.5); ABG Sodium Whole Blood 139 mmol/L (135-146); ABG TCO2 25 mmol/L (19-24)
[2019-01-09 11:59] LABS: ABG Base Excess -2.3 mmol/L; ABG HCO3 24 mmol/L (21-25); ABG Oxygen Saturation 99.8 % (94-97); ABG PCO2 45 mmHg (35-45); ABG PH 7.33 (7.35-7.45); ABG PO2 169 mmHg (83-108); ABG Potassium Whole Blood 4.1 mmol/L (3.4-4.5); ABG Sodium Whole Blood 139 mmol/L (135-146); ABG TCO2 25 mmol/L (19-24)
[2019-01-09 12:10] LABS: ABG Base Excess -2.4 mmol/L; ABG HCO3 23 mmol/L (21-25); ABG PCO2 43 mmHg (35-45); ABG PH 7.34 (7.35-7.45); ABG Potassium Whole Blood 4.3 mmol/L (3.4-4.5); ABG Sodium Whole Blood 137 mmol/L (135-146); ABG TCO2 25 mmol/L (19-24)
[2019-01-09 12:35] LABS: ABG Base Excess 0.4 mmol/L; ABG HCO3 25 mmol/L (21-25); ABG PCO2 41 mmHg (35-45); ABG PO2 340 mmHg (83-108); ABG Potassium Whole Blood 5.1 mmol/L (3.4-4.5); ABG Sodium Whole Blood 136 mmol/L (135-146); ABG TCO2 27 mmol/L (19-24)
[2019-01-09] MEDS ORDERED: WATER FOR INJECTION IV ONE (12:45)
[2019-01-09] MEDS ORDERED: STERILE IV ONE (12:45)
[2019-01-09] MEDS ORDERED: [UNRECOGNIZED DRUG - OTHER] IV ONE (12:45)
[2019-01-09 13:09] LABS: ABG HCO3 24 mmol/L (21-25); ABG PCO2 42 mmHg (35-45); ABG PH 7.35 (7.35-7.45); ABG PO2 399 mmHg (83-108); ABG Potassium Whole Blood 4.6 mmol/L (3.4-4.5); ABG Sodium Whole Blood 142 mmol/L (135-146); ABG TCO2 25 mmol/L (19-24)
[2019-01-09 13:50] LABS: ABG Base Excess -1.2 mmol/L; ABG HCO3 24 mmol/L (21-25); ABG PCO2 39 mmHg (35-45); ABG PH 7.39 (7.35-7.45); ABG PO2 223 mmHg (83-108); ABG Potassium Whole Blood 4.5 mmol/L (3.4-4.5); ABG Sodium Whole Blood 137 mmol/L (135-146); ABG TCO2 25 mmol/L (19-24)
[2019-01-09 14:32] LABS: ABG Base Excess -1.9 mmol/L; ABG HCO3 24 mmol/L (21-25); ABG Oxygen Saturation 99.4 % (94-97); ABG PCO2 48 mmHg (35-45); ABG PH 7.32 (7.35-7.45); ABG PO2 131 mmHg (83-108); ABG Potassium Whole Blood 3.8 mmol/L (3.4-4.5); ABG Sodium Whole Blood 139 mmol/L (135-146); ABG TCO2 26 mmol/L (19-24)
[2019-01-09 15:01] LABS: ABG PO2 >420 mmHg (83-108)
[2019-01-09] MEDS ORDERED: BENZOCAINE/MENTHOL LOZENG 1 EACH LOZENGE MUCOUS MEM PRN (15:20)
[2019-01-09] MEDS ORDERED: DEXTROSE 5% IN WATER 100 ML with AMIODARONE 150 MG IV PRN (15:20)
[2019-01-09] MEDS ORDERED: AMIODARONE 360 MG in DEXTROSE 5% IN WATER 200 ML IV PRN ×2 (15:20)
[2019-01-09] MEDS ORDERED: DEXMEDETOMIDINE/0.9% NACL(PMX) 400 MCG in EMPTY BAG 1 BAG IV SCH (15:20)
[2019-01-09] MEDS ORDERED: ONDANSETRON 4 MG/2 ML VIAL IVP PRN (15:20)
[2019-01-09] MEDS ORDERED: Phosphorus Replacement Protoco 1 EACH MISC MISCELLANE PRN (15:20)
[2019-01-09] MEDS ORDERED: MORPHINE SULFATE 2 MG/ML SYRINGE IVP PRN (15:20)
[2019-01-09] MEDS ORDERED: METOCLOPRAMIDE 5 MG/ML 2 ML VIAL IVP PRN (15:20)
[2019-01-09] MEDS ORDERED: Potassium Replacement Protocol 1 EACH MISC MISCELLANE PRN (15:20)
[2019-01-09] MEDS ORDERED: AMIODARONE 300 MG in DEXTROSE 5% IN WATER 250 ML IV PRN ×2 (15:20)
[2019-01-09] MEDS ORDERED: IPRATROPIUM-ALBUTEROL 3 ML NEB INHALATION PRN (15:20)
[2019-01-09] MEDS ORDERED: CALCIUM CHLORIDE 1 GM in SODIUM CHLORIDE 0.9% 50 ML IVPB PRN (15:20)
[2019-01-09] MEDS ORDERED: Magnesium Replacement Protocol 1 EACH MISC MISCELLANE PRN (15:20)
[2019-01-09] MEDS: INSULIN REGULAR 100 UNIT in SODIUM CHLORIDE 0.9% 100 ML IV SCH (15:40)
[2019-01-09] MEDS: NITROGLYCERIN-D5W PMX 50 MG in DEXTROSE/WATER 1 250ML.BAG IV SCH ×2 (15:40→17:43)
[2019-01-09 15:47] LABS: Glucose,Whole Blood 145 mg/dL (75-99)
[2019-01-09] MEDS: LACTATED RINGERS 1,000 ML IV SCH (16:00)
[2019-01-09 16:11] LABS: Basophils % (A) 1 %; Eosinophils # (A) 0.1 k/uL (0-0.7); Eosinophils % (A) 2 %; HCT 30.3 % (39.0-53.0); Lymphocytes # (A) 1.1 k/uL (1.0-4.8); Lymphocytes % (A) 22 %; MCH 34.5 pg (25.0-35.0); MCHC 33.8 g/dL (31.0-37.0); MCV 102.2 fL (80.0-100.0); Macrocytosis Slight; Mean Platelet Volume 7.5; Monocytes # (A) 0.2 k/uL (0-1.0); Monocytes % (A) 5 %; Neutrophils # (A) 3.7 k/uL (1.3-7.7); Neutrophils % (A) 71 %; Platelet Count 111 k/uL (150-450); RBC 2.97 m/uL (4.30-5.90); RDW 13.1 % (11.5-15.5); WBC 5.2 k/uL (3.8-10.6)
[2019-01-09 16:12] LABS: HGB 10.2 gm/dL (13.0-17.5)
[2019-01-09 16:29] LABS: INR 1.2 (<1.2); Partial Thromboplastin Time 49.9 sec (22.0-30.0); Prothrombin Time 12.5 sec (9.0-12.0)
[2019-01-09 16:30] LABS: Ionized Calcium 4.6 mg/dL (4.5-5.3)
[2019-01-09] MEDS: CLEVIDIPINE BUTYRATE 25 MG in EMPTY BAG 1 BAG IV SCH ×2 (16:30→17:32)
--- NOTE | 2019-01-09 16:30 | XR ---
EXAMINATION TYPE: XR chest 1V portable DATE OF EXAM: 01/09/2019 CLINICAL HISTORY: Post open cardiac surgery TECHNIQUE: Single AP portable semiupright view of the chest is obtained. COMPARISON: Chest x-ray from December 19, 2018 FINDINGS: There is new endotracheal tube with tip at superior clavicular level approximately 5 to 6 cm above the serge. There is new orogastric tube projecting below diaphragm. There is new right inte rnal jugular Jasper-Mohan catheter with tip at level of the pulmonary outflow track. New overlying engel al wires and mediastinal clips are present. New mediastinal drainage catheter is seen. New left-sided chest tube projecting towards apex is identified. Cardiac silhouette size is mildly enlarged with central vascular congestion. There is left basilar li near atelectasis. There is suspected small bilateral pleural fluid collections or effusions. No sizab le pneumothorax is present. Old left anterolateral and posterior rib fractures are redemonstrated. IMPRESSION: 1. New tubes and lines satisfactory in position as detailed above. 2. Mild cardiomegaly with new mild central vascular congestion and small to tiny bilateral pleural fl uid collections with left basilar linear atelectasis are now all present.
[2019-01-09] MEDS: IPRATROPIUM-ALBUTEROL 3 ML NEB INHALATION SCH ×2 (16:38→20:30)
[2019-01-09 16:43] LABS: ALT 35 U/L (21-72); AST 35 U/L (17-59); Albumin 2.9 g/dL (3.5-5.0); Alkaline Phosphatase 67 U/L (38-126); Anion Gap 6 mmol/L; Blood Urea Nitrogen 17 mg/dL (9-20); Calcium 7.6 mg/dL (8.4-10.2); Carbon Dioxide 24 mmol/L (22-30); Chloride 108 mmol/L (98-107); Glucose 121 mg/dL (74-99); Magnesium 2.4 mg/dL (1.6-2.3); Potassium 4.2 mmol/L (3.5-5.1); Sodium 138 mmol/L (137-145); Total Protein 5.1 g/dL (6.3-8.2)
[2019-01-09 16:55] LABS: Glucose,Whole Blood 111 mg/dL (75-99)
[2019-01-09 16:56] LABS: ABG Base Excess -1.3 mmol/L; ABG HCO3 26 mmol/L (21-25); ABG PCO2 59 mmHg (35-45); ABG PH 7.25 (7.35-7.45); ABG PO2 117 mmHg (83-108); ABG TCO2 28 mmol/L (19-24)
[2019-01-09] MEDS ORDERED: LORazepam 2 MG/ML INJ IV PRN ×3 (16:57)
[2019-01-09] MEDS ORDERED: hydrALAZINE HCL 20 MG/ML 1 ML VIAL IVP PRN (17:09)
[2019-01-09] MEDS ORDERED: PROPOFOL 1,000 MG in EMPTY BAG 1 BAG IV SCH (17:15)
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
[2019-01-09 17:32] LABS: ABG HCO3 23 mmol/L (21-25); ABG Oxygen Saturation 95.1 % (94-97); ABG PCO2 46 mmHg (35-45); ABG PO2 76 mmHg (83-108); ABG TCO2 24 mmol/L (19-24)
[2019-01-09] MEDS: ceFAZolin 3 GM in SODIUM CHLORIDE 0.9% 100 ML IVPB SCH ×2 (17:41→23:57)
[2019-01-09 17:58] LABS: Glucose,Whole Blood 149 mg/dL (75-99)
[2019-01-09] MEDS: ACETAMINOPHEN IV (For NPO) 1,000 MG in EMPTY BAG 1 BAG IVPB SCH ×2 (18:24→23:56)
[2019-01-09] MEDS: THIAMINE 100 MG TAB PO SCH (19:03)
[2019-01-09 19:09] LABS: Basophils % (A) 0 %; Eosinophils # (A) 0.1 k/uL (0-0.7); Eosinophils % (A) 1 %; HCT 32.5 % (39.0-53.0); Lymphocytes # (A) 0.9 k/uL (1.0-4.8); Lymphocytes % (A) 15 %; MCH 35.1 pg (25.0-35.0); MCHC 33.8 g/dL (31.0-37.0); MCV 103.8 fL (80.0-100.0); Macrocytosis Slight; Mean Platelet Volume 6.5; Monocytes # (A) 0.4 k/uL (0-1.0); Monocytes % (A) 6 %; Neutrophils # (A) 4.8 k/uL (1.3-7.7); Neutrophils % (A) 77 %; Platelet Count 160 k/uL (150-450); RBC 3.13 m/uL (4.30-5.90); RDW 12.9 % (11.5-15.5); WBC 6.2 k/uL (3.8-10.6)
[2019-01-09 19:13] LABS: Glucose,Whole Blood 148 mg/dL (75-99)
[2019-01-09] MEDS: ALBUMIN HUMAN 5% 250 ML in EMPTY BAG 1 BAG IVPB PRN (19:50)
[2019-01-09 20:24] LABS: Glucose,Whole Blood 148 mg/dL (75-99)
[2019-01-09] MEDS ORDERED: METOPROLOL TARTRATE 12.5 MG TAB PO SCH (21:00)
[2019-01-09 21:20] LABS: Glucose,Whole Blood 141 mg/dL (75-99)
[2019-01-09 21:35] LABS: Basophils % (A) 0 %; Eosinophils # (A) 0.1 k/uL (0-0.7); Eosinophils % (A) 1 %; HCT 29.9 % (39.0-53.0); HGB 10.3 gm/dL (13.0-17.5); Lymphocytes # (A) 0.9 k/uL (1.0-4.8); Lymphocytes % (A) 16 %; MCH 35.6 pg (25.0-35.0); MCHC 34.4 g/dL (31.0-37.0); MCV 103.7 fL (80.0-100.0); Macrocytosis Slight; Mean Platelet Volume 6.8; Monocytes # (A) 0.5 k/uL (0-1.0); Monocytes % (A) 8 %; Neutrophils # (A) 4.5 k/uL (1.3-7.7); Neutrophils % (A) 75 %; Platelet Count 143 k/uL (150-450); RBC 2.88 m/uL (4.30-5.90); RDW 13.1 % (11.5-15.5)
[2019-01-09 21:38] LABS: Ionized Calcium 4.6 mg/dL (4.5-5.3)
[2019-01-09 21:43] LABS: INR 1.1 (<1.2); Partial Thromboplastin Time 39.2 sec (22.0-30.0); Prothrombin Time 11.4 sec (9.0-12.0)
[2019-01-09 21:49] LABS: Anion Gap 5 mmol/L; Blood Urea Nitrogen 16 mg/dL (9-20); Calcium 7.8 mg/dL (8.4-10.2); Carbon Dioxide 24 mmol/L (22-30); Chloride 107 mmol/L (98-107); Glucose 136 mg/dL (74-99); Phosphorus 2.6 mg/dL (2.5-4.5); Potassium 4.5 mmol/L (3.5-5.1); Sodium 136 mmol/L (137-145)
[2019-01-09 22:03] LABS: ABG Base Excess -0.9 mmol/L; ABG HCO3 24 mmol/L (21-25); ABG Oxygen Saturation 97.5 % (94-97); ABG PCO2 40 mmHg (35-45); ABG PH 7.39 (7.35-7.45); ABG PO2 83 mmHg (83-108); ABG TCO2 25 mmol/L (19-24)
[2019-01-09 22:55] LABS: ABG Base Excess 0.2 mmol/L; ABG HCO3 25 mmol/L (21-25); ABG Oxygen Saturation 96.9 % (94-97); ABG PCO2 40 mmHg (35-45); ABG PO2 78 mmHg (83-108); ABG TCO2 26 mmol/L (19-24)
[2019-01-09 23:08] LABS: Glucose,Whole Blood 143 mg/dL (75-99)
[2019-01-09] MEDS: HEPARIN SODIUM,PORCINE 5,000 UNIT/ML 1 ML VIAL SQ SCH (23:56)
[2019-01-10 00:20] LABS: Glucose,Whole Blood 135 mg/dL (75-99)
[2019-01-10 01:01] LABS: Glucose,Whole Blood 126 mg/dL (75-99)
[2019-01-10] MEDS: ALBUMIN HUMAN 5% 250 ML in EMPTY BAG 1 BAG IVPB PRN (01:18)
[2019-01-10] MEDS: MUPIROCIN 2% OINT 22 GM TUBE NASAL SCH ×3 (01:20→22:18)
[2019-01-10 02:27] LABS: Glucose,Whole Blood 132 mg/dL (75-99)
[2019-01-10 03:23] LABS: Glucose,Whole Blood 132 mg/dL (75-99)
[2019-01-10] MEDS: ACETAMINOPHEN IV (For NPO) 1,000 MG in EMPTY BAG 1 BAG IVPB SCH ×3 (05:19→17:25)
[2019-01-10 05:34] LABS: Basophils % (A) 0 %; Eosinophils % (A) 1 %; HCT 28.4 % (39.0-53.0); HGB 9.6 gm/dL (13.0-17.5); Lymphocytes # (A) 0.8 k/uL (1.0-4.8); Lymphocytes % (A) 14 %; MCH 34.4 pg (25.0-35.0); MCHC 33.8 g/dL (31.0-37.0); MCV 101.9 fL (80.0-100.0); Macrocytosis Slight; Mean Platelet Volume 8.2; Monocytes # (A) 0.3 k/uL (0-1.0); Monocytes % (A) 5 %; Neutrophils # (A) 4.6 k/uL (1.3-7.7); Neutrophils % (A) 79 %; Platelet Count 113 k/uL (150-450); RBC 2.78 m/uL (4.30-5.90); RDW 13.3 % (11.5-15.5); WBC 5.8 k/uL (3.8-10.6)
[2019-01-10 05:40] LABS: Glucose,Whole Blood 127 mg/dL (75-99)
[2019-01-10 05:45] LABS: Ionized Calcium 4.7 mg/dL (4.5-5.3)
[2019-01-10 05:47] LABS: INR 1.1 (<1.2); Partial Thromboplastin Time 28.8 sec (22.0-30.0); Prothrombin Time 11.7 sec (9.0-12.0)
[2019-01-10 05:55] LABS: ALT 39 U/L (21-72); AST 47 U/L (17-59); Albumin 3.1 g/dL (3.5-5.0); Alkaline Phosphatase 53 U/L (38-126); Anion Gap 6 mmol/L; Blood Urea Nitrogen 17 mg/dL (9-20); Calcium 7.8 mg/dL (8.4-10.2); Carbon Dioxide 25 mmol/L (22-30); Chloride 106 mmol/L (98-107); Glucose 121 mg/dL (74-99); Potassium 4.5 mmol/L (3.5-5.1); Sodium 137 mmol/L (137-145); Total Bilirubin 1.3 mg/dL (0.2-1.3); Total Protein 5.1 g/dL (6.3-8.2)
[2019-01-10] MEDS: IPRATROPIUM-ALBUTEROL 3 ML NEB INHALATION SCH ×4 (07:14→19:03)
[2019-01-10 07:25] LABS: Glucose,Whole Blood 123 mg/dL (75-99)
--- NOTE | 2019-01-10 07:30 | OP ---
OPERATIVE REPORT DATE OF THE SURGERY: 01/09/2019. SURGEON: Dr. Kelli Roman. AVIONICS ELECTRICAL ENGINEER: 1. Nahomy Duron. 2. Alex Falk. PREOPERATIVE DIAGNOSIS: Double-vessel coronary artery disease, preserved left ventricular function, hypertension, hyperlipidemia, obesity, ETOH abuse, strong family history of coronary artery disease. POSTOPERATIVE DIAGNOSIS: Double-vessel coronary artery disease, preserved left ventricular function, hypertension, hyperlipidemia, obesity, ETOH abuse, strong family history of coronary artery disease. PROCEDURE: 1. Multiple arterial triple coronary artery bypass grafting using the left internal mammary artery to the left anterior descending artery, left radial artery from the aorta to the first obtuse marginal artery, reverse saphenous vein graft from the aorta to the first diagonal artery. 2. Endoscopic harvesting of the left radial artery. 3. Endoscopic harvesting of the right greater saphenous vein for intraoperative transesophageal echocardiogram and epiaortic scanning. 4. Intraoperative graft flow measurements using the Medi-Stim system. INDICATION FOR SURGERY: The patient is a 63-year-old gentleman with a strong family history, who underwent a stress test for screening in view of several comorbidities and showed anterolateral ischemia. Cardiac catheterization followed and that showed significant left-sided disease and mild nonobstructive right-sided coronary artery disease. His left ventricular function is preserved. The patient is brought in today for revascularization of his left system. The SDS risk was discussed with him. He understood it and agreed to proceed. DESCRIPTION OF THE PROCEDURE: The patient in supine position. Right internal jugular [place]-Mohan catheter and the right radial arterial line were placed in the preoperative holding area. Subsequently he was brought to the operating room where general endotracheal anesthesia was induced uneventfully. He had normal PA pressure and good cardiac index. He received 2 g of cefazolin intravenously. A [place] catheter was inserted. The chest, abdomen, both lower extremities and left upper extremity were prepped and draped using ChloraPrep. Ioban was used to cover the skin. Transesophageal echocardiogram showed preserved systolic function and mild mitral valve regurgitation and left ventricular hypertrophy. Midline sternotomy was performed and the bone was quite dense. The left hemisternum was elevated and left internal mammary artery was harvested in a somewhat skeletonized fashion. No bone wax was used. The left pleura had some adhesions from a prior rib fracture, they were left alone and I drained the left pleura with a 19-Tajik Chacho drain. The patient was given 5000 units of heparin before clipping the left internal mammary artery beyond its bifurcation and transected. It had an excellent pulsatile flow in it and was around 2 mm in diameter. In the same setting, the left radial artery was harvested initially without inflating the tourniquet, but then the tourniquet had to be inflated in view of branch bleeding. The forearm incision was closed over a drain. The total tourniquet time was one hour. Also in the same setting, the right greater saphenous vein was harvested endoscopically from mid thigh to above the ankle level. The branches were tied. The leg incisions were closed over a drain. Mediastinal fat was transected between 2 ties and epiaortic scanning revealed normal ascending aorta. Pericardium was opened in an inverted T-fashion and a pericardial cradle was created. Findings included a short high aorta and a normal-sized heart. After systemic heparinization, after placement of respective pledgeted pursestring, aortic cannulation with a 21-Tajik soft flow cannula and venous cannulation with a dual stage cannula via the right atrial appendage was performed. Antegrade as well as retrograde cardioplegia catheters were placed. The radial artery was basically skeletonized during harvesting and all the branches were clipped. It was around 2.5 mm in diameter. The vein was prepared and appeared to be of good quality around 4 mm in diameter in the segment from the lower leg and it got thin and bit larger on the segment from the thigh. Cardioplegia bypass was initiated and with the heart empty and beating we looked at the target. It appeared that the LAD, first diagonal artery and obtuse marginal artery are the site for bypass. The aorta was clamped and during aortic clamping, myocardial protection was achieved with initial dose of antegrade cold blood cardioplegia followed by dose of retrograde cold blood cardioplegia. All subsequent doses were given retrograde at 15 minutes interval. The first distal anastomosis was between the radial artery and the superior branching of the obtuse marginal artery which was around 1.5 mm in diameter using Prolene 7-0 in continuous fashion. The second distal anastomosis was between another segment of reverse saphenous vein graft and the first diagonal artery which was around 1.25 mm in diameter with a posterior plaque in it using Prolene 7-0 in continuous fashion. I used a 1 mm shunt to better define the edges of the artery during the anastomosis. The shunt was removed before completing the anastomosis. The third and last distal anastomosis was between the left internal mammary artery in the past and a groove in the left pleuropericardial fat and the mid to distal aspect of the left anterior descending artery which was of reasonable caliber around 1.7 mm in diameter with a lateral plaque in it using Prolene 7-0 in continuous fashion. The mammary pedicle was affixed to the epicardium with Prolene 6-0 sutures. Satisfied with the distal anastomosis, rewarming was started and we punched out 2 buttons of 4 mm each and we anastomosed the vein graft and radial artery to the ascending aorta using Prolene 6-0 and 7-0 respectively. The patient was given lidocaine and magnesium. De-airing maneuvers were performed before unclamping the aorta. He regained spontaneous sinus rhythm. After a period of reperfusion, we were able to wean off cardioplegia bypass without the need of any inotropic or vasopressor support. We used nitroglycerin for anti-radial spasm prevention. Graft flow measurements at this point revealed excellent flow. The flow into the vein graft to the diagonal artery was 34 mL/minute, pulsatility index of 2.5 and diastolic filling of 71%. The flow into the left internal mammary artery to the left anterior descending artery was 54 mL/minute, pulsatility index of 2.8 and diastolic filling of 76%. The flow into the radial artery to the obtuse marginal artery was 45 mL/minute, pulsatility index of 1.7 and diastolic filling of 68%. All these parameters showed excellent functioning graft. With that test dose and full dose protamine was given. Decannulation followed. The venous cannulation site needed to be reinforced with a running Prolene 4-0. Two monopolar atrial pacing wires were affixed to the respective pursing of the right atrium and 1 bipolar ventricular pacing wire was driven via the inferior aspect of the right ventricle. Two 19-Tajik Chacho drains were placed, one in the posterior pericardium and one substernally. Pericardial fat was draped over the heart and the grafts. After ensuring adequate hemostasis and hemodynamic and after correct sponge, instrument, and needle count, the sternum was closed using 5 [id number] pineal cable after interposing fibular between the sternal edges. Thorough irrigation with cefazolin followed. The rest of the closure proceeded in the layers. Skin glue was applied. The patient did not receive any blood bank product but received 450 mL of Cell Saver blood. He was transferred to the ICU in stable condition with a cardiac index of 3, PA pressure of 30/11, mean artery pressure of 66 with a normal EKG with a sinus rhythm at 88. MMODL / IJN: [id number] /
[2019-01-10 08:10] LABS: Glucose,Whole Blood 148 mg/dL (75-99)
[2019-01-10] MEDS: KETOROLAC 30 MG/ML 1 ML VIAL IVP SCH ×3 (08:20→17:27)
[2019-01-10] MEDS: DILTIAZEM ORAL 30 MG TAB PO SCH ×3 (08:20→17:26)
[2019-01-10] MEDS: HEPARIN SODIUM,PORCINE 5,000 UNIT/ML 1 ML VIAL SQ SCH ×2 (08:20→17:26)
[2019-01-10] MEDS: ASPIRIN 325 MG TAB PO SCH (08:21)
[2019-01-10] MEDS: ATORVASTATIN 40 MG TAB PO SCH (08:21)
[2019-01-10] MEDS: METOPROLOL TARTRATE 25 MG TAB PO SCH ×2 (08:21→22:17)
--- NOTE | 2019-01-10 08:25 | XR ---
EXAMINATION TYPE: XR chest 1V portable DATE OF EXAM: 01/10/2019 COMPARISON: Prior chest x-ray 01/09/2019 HISTORY: Postop cardiac surgery, chest tube TECHNIQUE: Single frontal view of the chest is obtained. FINDINGS: Endotracheal tube and NG tube have been removed. Left-sided chest tube, post median sterno leslie change, right jugular central venous sheath and coaxial [place]-Mohan catheter are noted, distal tip of the pulmonary artery catheter is stable overlying the pulmonary artery. No evident pneumothorax. Heart remains enlarged. Central vascularity is prominent, interstitium is increased. Patient is rotat ed. IMPRESSION: Interval extubation. There may be a component of volume overload, pulmonary venous hyper tension and interstitial edema. Cardiomegaly. Additional follow-up recommended.
[2019-01-10] MEDS: ceFAZolin 3 GM in SODIUM CHLORIDE 0.9% 100 ML IVPB SCH ×2 (08:27→17:40)
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
[2019-01-10] MEDS ORDERED: PANTOPRAZOLE 40 MG/10 ML VIAL IVP SCH (09:00)
[2019-01-10] MEDS ORDERED: METOPROLOL TARTRATE 12.5 MG TAB PO SCH (09:00)
[2019-01-10 09:31] LABS: Glucose,Whole Blood 138 mg/dL (75-99)
[2019-01-10 10:04] VITALS: BMI 44.6
[2019-01-10 10:25] LABS: Glucose,Whole Blood 125 mg/dL (75-99)
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
[2019-01-10] MEDS: PARoxetine 10 MG TAB PO SCH (12:21)
[2019-01-10 12:23] LABS: Glucose,Whole Blood 134 mg/dL (75-99)
[2019-01-10] MEDS: MULTIVITAMINS, THERA 1 EACH TAB PO SCH (12:42)
[2019-01-10] MEDS: THIAMINE 100 MG TAB PO SCH ×2 (12:42→17:26)
[2019-01-10] MEDS: CLOPIDOGREL 75 MG TAB PO SCH (12:42)
[2019-01-10] MEDS: FOLIC ACID 1 MG TAB PO SCH (12:42)
[2019-01-10 12:58] LABS: Glucose,Whole Blood 162 mg/dL (75-99)
[2019-01-10 14:39] LABS: Glucose,Whole Blood 175 mg/dL (75-99)
[2019-01-10] MEDS ORDERED: HYDROcodone/APAP 5-325MG 1 EACH TAB PO PRN (15:09)
[2019-01-10] MEDS ORDERED: MAGNESIUM HYDROXIDE 2,400 MG/10 ML CUP PO PRN (15:10)
[2019-01-10] MEDS ORDERED: BISACODYL 10 MG SUPP RECTAL PRN (15:10)
[2019-01-10 15:29] LABS: Glucose,Whole Blood 121 mg/dL (75-99)
[2019-01-10] MEDS: LACTATED RINGERS 1,000 ML IV SCH (16:32)
[2019-01-10 16:33] LABS: Glucose,Whole Blood 115 mg/dL (75-99)
[2019-01-10 17:24] LABS: Glucose,Whole Blood 113 mg/dL (75-99)
[2019-01-10 19:20] LABS: Glucose,Whole Blood 177 mg/dL (75-99)
[2019-01-10 20:13] LABS: Glucose,Whole Blood 149 mg/dL (75-99)
[2019-01-10 21:05] LABS: Glucose,Whole Blood 126 mg/dL (75-99)
[2019-01-10] MEDS: SENNOSIDES-DOCUSATE SODIUM 1 EACH TAB PO SCH (22:17)
[2019-01-10 23:25] LABS: Glucose,Whole Blood 132 mg/dL (75-99)
--- NOTE | 2019-01-10 23:32 | CONS ---
CONSULTATION REASON FOR CONSULTATION: Medical management. HISTORY OF PRESENT ILLNESS: This is a 63-year-old gentleman who is status post 3-vessel CABG. The patient had surgery yesterday. The patient was seen by me yesterday as well. The patient, however, was under sedation and on the ventilator yesterday. Today he is awake, alert, sitting in a chair. Denies any symptoms. He has a history, as mentioned above, of hypertension, hyperlipidemia, coronary artery disease. REVIEW OF SYSTEMS: NEURO: Denies any headaches, dizziness. PSYCH: No anxiety. CARDIAC: No angina. Present soreness in the chest from surgery. Pain with cough. Otherwise denies shortness of breath. Patient has fairly rhythm. GI: No nausea, vomiting, abdominal pains. No bowel movement. : No symptoms. EXTREMITIES: No pain. CONSTITUTIONAL: No fever, chills. PHYSICAL EXAMINATION: Pleasant 63-year-old, at present in no distress. VITAL SIGNS: Afebrile, pulse 125, respirations 26, blood pressure 109/58, pulse ox of of 94% on 8 L. HEENT: Normocephalic. Neck has central lines. CHEST: Decreased air flow at bases. CARDIAC: Normal S1, S2. No gallops. ABDOMEN: Soft. EXTREMITIES: No edema, left leg. Right leg -- patient has a drain in place. LABORATORY ASSESSMENT: Normal electrolytes, normal BUN, creatinine. Normal sugar at 121. Hemoglobin 9.6, platelets 113, white count 5.8. ASSESSMENT: 1. Status post coronary artery bypass grafting. 2. Sinus tachycardia. 3. History of hyperlipidemia. 4. History of essential hypertension. 5. Obesity. PLAN: Continue present medical regimen. Patient's condition discussed with the patient. Prognosis guarded. MMODL / IJN: [id number] /
[2019-01-11] MEDS: INSULIN REGULAR 100 UNIT in SODIUM CHLORIDE 0.9% 100 ML IV SCH (00:08)
[2019-01-11] MEDS: ceFAZolin 3 GM in SODIUM CHLORIDE 0.9% 100 ML IVPB SCH (00:08)
[2019-01-11 00:09] LABS: Glucose,Whole Blood 117 mg/dL (75-99)
[2019-01-11] MEDS: HEPARIN SODIUM,PORCINE 5,000 UNIT/ML 1 ML VIAL SQ SCH ×4 (00:09→23:34)
[2019-01-11] MEDS: KETOROLAC 30 MG/ML 1 ML VIAL IVP SCH ×5 (00:09→23:34)
[2019-01-11] MEDS: DILTIAZEM ORAL 30 MG TAB PO SCH ×2 (00:09→06:27)
[2019-01-11] MEDS: HYDROcodone/APAP 5-325MG 1 EACH TAB PO PRN ×2 (00:44→06:27)
[2019-01-11 02:23] LABS: Glucose,Whole Blood 120 mg/dL (75-99)
[2019-01-11 04:32] LABS: Glucose,Whole Blood 107 mg/dL (75-99)
[2019-01-11 05:04] LABS: Basophils % (A) 0 %; Eosinophils # (A) 0.3 k/uL (0-0.7); Eosinophils % (A) 4 %; HCT 23.8 % (39.0-53.0); Lymphocytes # (A) 1.3 k/uL (1.0-4.8); Lymphocytes % (A) 20 %; MCH 36.2 pg (25.0-35.0); MCHC 34.2 g/dL (31.0-37.0); MCV 105.8 fL (80.0-100.0); Macrocytosis Slight; Mean Platelet Volume 6.7; Monocytes # (A) 0.3 k/uL (0-1.0); Monocytes % (A) 5 %; Neutrophils # (A) 4.5 k/uL (1.3-7.7); Neutrophils % (A) 68 %; Platelet Count 109 k/uL (150-450); RBC 2.25 m/uL (4.30-5.90); RDW 13.2 % (11.5-15.5); WBC 6.6 k/uL (3.8-10.6)
[2019-01-11 05:11] LABS: HGB 8.1 gm/dL (13.0-17.5)
[2019-01-11 05:15] LABS: ALT 35 U/L (21-72); AST 61 U/L (17-59); Albumin 2.8 g/dL (3.5-5.0); Alkaline Phosphatase 58 U/L (38-126); Anion Gap 3 mmol/L; Blood Urea Nitrogen 17 mg/dL (9-20); Calcium 7.9 mg/dL (8.4-10.2); Carbon Dioxide 28 mmol/L (22-30); Chloride 105 mmol/L (98-107); Glucose 104 mg/dL (74-99); Phosphorus 2.4 mg/dL (2.5-4.5); Sodium 136 mmol/L (137-145); Total Protein 4.9 g/dL (6.3-8.2)
[2019-01-11 06:12] LABS: Glucose,Whole Blood 110 mg/dL (75-99)
[2019-01-11] MEDS: PANTOPRAZOLE 40 MG TABLET PO SCH (06:27)
[2019-01-11 06:35] LABS: Glucose,Whole Blood 109 mg/dL (75-99)
[2019-01-11] MEDS: IPRATROPIUM-ALBUTEROL 3 ML NEB INHALATION SCH ×4 (07:34→21:02)
[2019-01-11 07:54] LABS: Glucose,Whole Blood 121 mg/dL (75-99)
[2019-01-11] MEDS ORDERED: FUROSEMIDE 10 MG/ML 2 ML VIAL IV ONE (08:56)
[2019-01-11] MEDS: METOPROLOL TARTRATE 25 MG TAB PO SCH ×2 (09:00→20:13)
[2019-01-11] MEDS: CLOPIDOGREL 75 MG TAB PO SCH (09:01)
[2019-01-11] MEDS: ATORVASTATIN 40 MG TAB PO SCH (09:01)
[2019-01-11] MEDS: PARoxetine 10 MG TAB PO SCH (09:01)
[2019-01-11] MEDS: MUPIROCIN 2% OINT 22 GM TUBE NASAL SCH ×2 (09:01→20:14)
[2019-01-11] MEDS: ASPIRIN 325 MG TAB PO SCH (09:03)
--- NOTE | 2019-01-11 09:26 | XR ---
EXAMINATION TYPE: XR chest 1V portable DATE OF EXAM: 01/11/2019 COMPARISON: Prior chest x-ray 01/10/2019 HISTORY: Postop cardiac surgery TECHNIQUE: Single frontal view of the chest is obtained. FINDINGS: Patient is post median sternotomy and the heart remains enlarged. Left-sided chest tube an d right-sided central venous sheath remain in place, central venous catheter has been removed. No pne umothorax. Patchy bibasilar density persists. Central vascularity and interstitium are prominent. IMPRESSION: Interval catheter removal. There may be a component of volume overload, pulmonary venous hypertension and interstitial edema. Additional follow-up recommended.
[2019-01-11 12:17] LABS: Glucose,Whole Blood 154 mg/dL (75-99)
[2019-01-11] MEDS: MULTIVITAMINS, THERA 1 EACH TAB PO SCH (13:01)
[2019-01-11] MEDS: FOLIC ACID 1 MG TAB PO SCH (13:01)
[2019-01-11] MEDS: THIAMINE 100 MG TAB PO SCH ×2 (13:01→17:48)
[2019-01-11] MEDS: INSULIN ASPART (NovoLOG) 100 UNIT/ML VIAL SQ SCH ×3 (13:01→21:46)
[2019-01-11] MEDS: amLODIPine 2.5 MG TAB PO SCH (13:02)
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
[2019-01-11 16:54] LABS: Glucose,Whole Blood 126 mg/dL (75-99)
[2019-01-11] MEDS: SENNOSIDES-DOCUSATE SODIUM 1 EACH TAB PO SCH (20:13)
[2019-01-11 21:09] LABS: Glucose,Whole Blood 181 mg/dL (75-99)
--- NOTE | 2019-01-11 22:48 | PN ---
PROGRESS NOTE CHIEF COMPLAINT: Re-evaluation. HISTORY OF PRESENT ILLNESS: This 63-year-old gentleman is status post CABG x3. The patient is doing really well. He has no major complaints except mild aches and pains from the surgery, but much tolerable. REVIEW OF SYSTEMS: NEURO: Denies any headaches, dizziness. PSYCH: No anxiety. CARDIAC: Denies any chest pain except for surgical pain. Denies any angina. RESPIRATORY: Denies shortness of breath, cough, hemoptysis. GI: No nausea, vomiting, abdominal pain diet. : No symptoms of dysuria or hematuria. EXTREMITIES: No pain. CONSTITUTIONAL: No fever or chills. PHYSICAL EXAMINATION: Pleasant gentleman. VITAL SIGNS: Temperature 98.8, pulse 91, respirations 20, blood pressure 108/55, pulse ox 96% on 4 L. HEENT: Normocephalic. NECK: No JVD. CHEST EXAMINATION: Clear to auscultation except for mild decreased air flow at the bases. CARDIAC: Normal S1, S2 with no gallops, no rubs. ABDOMEN: Soft. EXTREMITIES: Trace edema, right leg. Neurologically awake, alert, oriented with well-coordinated movements. LABORATORY ASSESSMENT: Blood sugars which are well controlled. ASSESSMENT: 1. Coronary artery disease, status post coronary artery bypass grafting. 2. Hypertension. 3. Obesity. 4. Anemia post surgery, as expected with blood loss. PLAN: Patient is stable. Continue present medical regimen. The patient condition was discussed with the patient. Prognosis guarded. Potential discharge in the next 48 hours. MMODL / IJN: [id number] /
[2019-01-12 02:10] LABS: Glucose,Whole Blood 136 mg/dL (75-99)
[2019-01-12 06:13] LABS: Glucose,Whole Blood 219 mg/dL (75-99)
[2019-01-12] MEDS: PANTOPRAZOLE 40 MG TABLET PO SCH (07:00)
[2019-01-12] MEDS: KETOROLAC 30 MG/ML 1 ML VIAL IVP SCH ×4 (07:00→23:10)
[2019-01-12] MEDS: INSULIN ASPART (NovoLOG) 100 UNIT/ML VIAL SQ SCH ×4 (07:00→23:13)
[2019-01-12 07:52] LABS: HCT 24.3 % (39.0-53.0); HGB 8.2 gm/dL (13.0-17.5); MCH 35.6 pg (25.0-35.0); MCHC 33.5 g/dL (31.0-37.0); MCV 106.1 fL (80.0-100.0); Macrocytosis Moderate; Mean Platelet Volume 7.9; RBC 2.29 m/uL (4.30-5.90); RDW 13.2 % (11.5-15.5)
[2019-01-12] MEDS: IPRATROPIUM-ALBUTEROL 3 ML NEB INHALATION SCH ×4 (07:56→19:06)
[2019-01-12 08:33] LABS: Anion Gap 6 mmol/L; Blood Urea Nitrogen 23 mg/dL (9-20); Calcium 8.1 mg/dL (8.4-10.2); Carbon Dioxide 24 mmol/L (22-30); Chloride 108 mmol/L (98-107); Glucose 105 mg/dL (74-99); Potassium 4.7 mmol/L (3.5-5.1); Sodium 138 mmol/L (137-145)
--- NOTE | 2019-01-12 08:58 | XR ---
EXAMINATION TYPE: XR chest 2V DATE OF EXAM: 01/12/2019 COMPARISON: 01/11/2019 TECHNIQUE: PA and lateral views submitted. HISTORY: Postop CABG FINDINGS: Arthropathy of the shoulders seen in there severe cardiomegaly. Postsurgical changes noted. Deformiti es of the rib cage are seen. Correlate for remote trauma. Bilateral consolidation and pleural effusio n. Interstitial pattern noted. No pneumothorax. Chest tube has been removed. Vascular sheath is remov ed. IMPRESSION: 1. Bilateral infiltrate and small effusion correlate for CHF otherwise consider pneumonia. Underlying chronic interstitial lung disease suggested.
[2019-01-12] MEDS: CLOPIDOGREL 75 MG TAB PO SCH (09:03)
[2019-01-12] MEDS: ASPIRIN 325 MG TAB PO SCH (09:03)
[2019-01-12] MEDS: METOPROLOL TARTRATE 25 MG TAB PO SCH (09:04)
[2019-01-12] MEDS: HEPARIN SODIUM,PORCINE 5,000 UNIT/ML 1 ML VIAL SQ SCH ×3 (09:04→23:12)
[2019-01-12] MEDS: ATORVASTATIN 40 MG TAB PO SCH (09:04)
[2019-01-12] MEDS: MUPIROCIN 2% OINT 22 GM TUBE NASAL SCH ×2 (09:11→20:50)
[2019-01-12] MEDS: PARoxetine 10 MG TAB PO SCH (09:11)
[2019-01-12] MEDS ORDERED: METOPROLOL TARTRATE 25 MG TAB PO STA (09:18)
[2019-01-12] MEDS ORDERED: FUROSEMIDE 10 MG/ML 4 ML VIAL IV STA (09:19)
[2019-01-12] MEDS ORDERED: ACETAMINOPHEN TAB 325 MG TAB PO PRN ×2 (09:30)
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
[2019-01-12] MEDS ORDERED: ATORVASTATIN 80 MG TAB PO SCH (10:00)
[2019-01-12] MEDS ORDERED: ATORVASTATIN 40 MG TAB PO ONE (10:15)
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
[2019-01-12 10:30] LABS: Platelet Count 96 k/uL (150-450)
[2019-01-12 11:49] LABS: Glucose,Whole Blood 122 mg/dL (75-99)
[2019-01-12] MEDS: THIAMINE 100 MG TAB PO SCH ×2 (12:44→18:30)
[2019-01-12] MEDS: MULTIVITAMINS, THERA 1 EACH TAB PO SCH (12:44)
[2019-01-12] MEDS: amLODIPine 2.5 MG TAB PO SCH (12:44)
[2019-01-12] MEDS: FOLIC ACID 1 MG TAB PO SCH (12:44)
[2019-01-12] MEDS: EZETIMIBE 10 MG TAB PO SCH (12:45)
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
[2019-01-12 16:59] LABS: Glucose,Whole Blood 102 mg/dL (75-99)
[2019-01-12] MEDS: SENNOSIDES-DOCUSATE SODIUM 1 EACH TAB PO SCH (20:49)
[2019-01-12] MEDS: METOPROLOL TARTRATE 50 MG TAB PO SCH (20:50)
[2019-01-12 21:17] LABS: Glucose,Whole Blood 128 mg/dL (75-99)
--- NOTE | 2019-01-12 23:43 | PN ---
PROGRESS NOTE ATTENDING PHYSICIAN: Dr. Roman. CONSULTING PHYSICIAN: Dr. Alonso Velasco. CHIEF COMPLAINT: Re-evaluation. HISTORY OF PRESENT ILLNESS: This is a 63-year-old gentleman status post CABG. He is feeling somewhat down today. No appetite. Otherwise breathing is no symptoms. The patient does have controlled pain from the surgery. REVIEW OF SYSTEMS: Neuro: Denies any headaches, dizziness. Psych: No anxiety. CARDIAC: Denies chest pain, angina, palpitations. RESPIRATORY: Denies shortness of breath, cough. GI no nausea, vomiting, decreased appetite. No abdominal pain. No bowel movement. : No symptoms of dysuria, hematuria. Extremities: Pain at the site of vein harvest. CONSTITUTIONAL: No fever or chills. PHYSICAL EXAMINATION: Pleasant gentleman, temperature 98.2, pulse 93, respirations 18, blood pressure 115/60, pulse ox 94 percent. HEENT: Normocephalic. Neck no JVD. CHEST EXAMINATION: Decreased air flow at the bases. CARDIAC: Distant heart sounds S1, S2 with regular. No murmurs, rubs appreciated. ABDOMEN: Soft. Bowel sounds present. EXTREMITIES: 1+ edema both upper and lower extremities. Neurologically: Awake, alert, oriented, well-coordinated movements. LABORATORY ASSESSMENT: Hemoglobin is 8.2, platelets 96,000. Electrolytes BUN 23, glucose was 105. ASSESSMENT: 1. Status post coronary artery bypass grafting. 2. Anemia secondary to acute blood loss as expected. 3. Thrombocytopenia. PLAN: The patient is stable. Continue present medical regimen. Patient's condition discussed with the patient. Prognosis guarded and do expect patient to bounce back. MMODL / IJN: [id number] /
[2019-01-13 06:20] LABS: Glucose,Whole Blood 128 mg/dL (75-99)
[2019-01-13] MEDS: PANTOPRAZOLE 40 MG TABLET PO SCH (06:48)
[2019-01-13 07:42] LABS: Anion Gap 6 mmol/L; Blood Urea Nitrogen 24 mg/dL (9-20); Calcium 8.3 mg/dL (8.4-10.2); Carbon Dioxide 25 mmol/L (22-30); Chloride 107 mmol/L (98-107); Glucose 110 mg/dL (74-99); Sodium 138 mmol/L (137-145)
[2019-01-13 07:43] LABS: HCT 24.1 % (39.0-53.0); HGB 8.2 gm/dL (13.0-17.5); MCHC 33.9 g/dL (31.0-37.0); MCV 103.1 fL (80.0-100.0); Macrocytosis Slight; Mean Platelet Volume 7.9; RBC 2.34 m/uL (4.30-5.90); RDW 13.3 % (11.5-15.5); WBC 7.2 k/uL (3.8-10.6)
[2019-01-13 07:47] LABS: Platelet Count 158 k/uL (150-450)
[2019-01-13] MEDS ORDERED: ATORVASTATIN 80 MG TAB PO SCH (09:00)
[2019-01-13] MEDS: IPRATROPIUM-ALBUTEROL 3 ML NEB INHALATION SCH ×3 (09:14→16:34)
[2019-01-13] MEDS: ASPIRIN 325 MG TAB PO SCH (10:00)
[2019-01-13] MEDS: METOPROLOL TARTRATE 50 MG TAB PO SCH (10:00)
[2019-01-13] MEDS: CLOPIDOGREL 75 MG TAB PO SCH (10:00)
[2019-01-13] MEDS: PARoxetine 10 MG TAB PO SCH (10:00)
[2019-01-13] MEDS: HEPARIN SODIUM,PORCINE 5,000 UNIT/ML 1 ML VIAL SQ SCH (10:00)
[2019-01-13] MEDS: EZETIMIBE 10 MG TAB PO SCH (10:00)
[2019-01-13] MEDS ORDERED: FUROSEMIDE 10 MG/ML 4 ML VIAL IV STA (10:18)
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
[2019-01-13 11:56] LABS: Glucose,Whole Blood 124 mg/dL (75-99)
[2019-01-13] MEDS: KETOROLAC 30 MG/ML 1 ML VIAL IVP SCH ×2 (12:22→13:14)
[2019-01-13] MEDS: INSULIN ASPART (NovoLOG) 100 UNIT/ML VIAL SQ SCH ×2 (12:23→13:14)
[2019-01-13 12:36] VITALS: BP 127/69; TEMP 98.8
[2019-01-13] MEDS: MULTIVITAMINS, THERA 1 EACH TAB PO SCH (13:16)
[2019-01-13] MEDS: THIAMINE 100 MG TAB PO SCH (13:16)
[2019-01-13] MEDS: FOLIC ACID 1 MG TAB PO SCH (13:17)
[2019-01-13] MEDS: amLODIPine 2.5 MG TAB PO SCH (13:19)
--- NOTE | 2019-01-13 14:26 | P.PN ---
Subjective Progress Note Date: 01/13/19 This is a 63-year-old gentleman who is status post two-vessel bypass surgery, he was seen and examined this morning, sitting up in the chair. He's been up ambulating with assistance tolerating it very well. Blood pressure 128/ 68 with a heart rate in the 80s, white blood cell count 7.2, hemoglobin 8.2, platelet count 158. Sodium 138, potassium 4.0, BUN 24 and creatinine 0.8. Repeat chest x-ray of today showed cardiomegaly. Chronic pleural changes may be present, difficult to exclude basilar atelectasis and minimal effusions. Objective - Vital Signs Vital signs: Vital Signs Temp 98.8 F 01/13/19 12:00 Pulse 92 01/13/19 13:15 Resp 20 01/13/19 12:00 BP 127/69 01/13/19 12:00 Pulse Ox 97 01/13/19 12:00 Intake & Output 01/12/19 01/13/19 01/13/19 18:59 06:59 18:59 Intake Total 480 Output Total 950 Balance -950 480 Weight 132.6 kg Intake: Oral 480 Output: Urine 950 Other: Voiding Method Urinal ABP, PAP, CO, CI - Last Documented Arterial Blood Pressure 143/58 Pulmonary Artery Pressure 27/10 Cardiac Output 11 Cardiac Index 4.2 - Exam GENERAL EXAM: Alert oriented 3, active, comfortable in no apparent distress. On 2 L high flow nasal cannula. HEAD: Normocephalic. EYES: Normal reaction of pupils, equal size. NOSE: Clear with pink turbinates. THROAT: No erythema or exudates. NECK: No masses, no JVD. CHEST: Sternal dressing dry and intact. Heart hugger in place. LUNGS: Equal air entry with crackles in the posterior bases. CVS: S1 and S2 normal with no audible murmur, regular rhythm. ABDOMEN: No hepatosplenomegaly, normal bowel sounds, no guarding or rigidity. SPINE: No scoliosis or deformity SKIN: No rashes CENTRAL NERVOUS SYSTEM: No focal deficits, tone is normal in all 4 extremities. EXTREMITIES: There is trace peripheral edema. No clubbing, no cyanosis. Peripheral pulses are intact. - Labs CBC & Chem 7: 01/13/19 06:49 01/13/19 06:49 Labs: Abnormal Lab Results - Last 24 Hours (Table) 01/12/19 01/12/19 01/13/19 Range/Units 16:54 21:15 06:18 RBC (4.30-5.90) m/uL Hgb (13.0-17.5) gm/dL Hct (39.0-53.0) % MCV (80.0-100.0) fL BUN (9-20) mg/dL Glucose (74-99) mg/dL POC Glucose (mg/dL) 102 H 128 H 128 H (75-99) mg/dL Calcium (8.4-10.2) mg/dL 01/13/19 01/13/19 01/13/19 Range/Units 06:49 06:49 11:40 RBC 2.34 L (4.30-5.90) m/uL Hgb 8.2 L (13.0-17.5) gm/dL Hct 24.1 L (39.0-53.0) % MCV 103.1 H (80.0-100.0) fL BUN 24 H (9-20) mg/dL Glucose 110 H (74-99) mg/dL POC Glucose (mg/dL) 124 H (75-99) mg/dL Calcium 8.3 L (8.4-10.2) mg/dL Assessment and Plan Plan: Assessment 1 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 2 post thoracotomy 3 COPD 4 questionable alcoholism 5 hypertension 6 hyperlipidemia Plan Cardiology's perspective, patient may be in to be discharged home once cleared by cardiothoracic surgery. He will have a follow-up appointment in the office post discharge. DNP note has been reviewed, I agree with a documented findings and plan of care. Patient was seen and examined.
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
[2019-01-13 16:40] VITALS: RESP 18
[2019-01-13 16:46] VITALS: PULSE 100
[2019-01-13 16:52] LABS: Glucose,Whole Blood 117 mg/dL (75-99)
[2019-01-14] MEDS ORDERED: FUROSEMIDE 40 MG TAB PO SCH (09:00)
--- NOTE | 2019-01-14 12:14 | P.PN ---
Subjective Progress Note Date: 01/13/19 Principal diagnosis: Status post CABG This 63-year-old gentleman was admitted to the hospital and undergone CABG on an elective basis. The patient has hypertension on medical therapy well controlled on the outpatient. Has hyperlipidemia on medical therapy. Patient presented with symptoms of dyspnea. Evaluation has revealed the patient had significant coronary artery disease and has undergone CABG. Postoperatively he has done well. His sugars are being controlled. He he has had no arrhythmia. He is feeling better today compared to yesterday. Denies shortness of breath minimal cough no hemoptysis is continuing to use his inspiratory spirometer. No nausea vomiting abdominal pain diarrhea extremities decreased edema continued mild pain.. His pacemaker wires are to be removed today and for possible discharge later REVIEW OF SYSTEMS: Neuro: Denies any headaches dizziness. Psych: Denies anxiety depression feels oriented. Cardiac: Mild chest soreness no angina or palpitations Respiratory: Or shortness of breath or dyspnea minimal cough. GI: Denies nausea vomiting or abdominal pain. No diarrhea or constipation, no bowel movement yet. : Denies dysuria hematuria. Extremities: Mild pain in the extremities is site of the artery and vein harvest Skin: Intact. Constitutional: No fever, chills. Objective - Vital Signs Vital signs: Vital Signs Temp 98.8 F 01/13/19 12:00 Pulse 100 01/13/19 16:45 Resp 18 01/13/19 16:35 BP 127/69 01/13/19 12:00 Pulse Ox 94 L 01/13/19 16:35 Intake & Output 01/13/19 01/14/19 01/14/19 18:59 06:59 18:59 Intake Total 480 Balance 480 Intake: Oral 480 ABP, PAP, CO, CI - Last Documented Arterial Blood Pressure 143/58 Pulmonary Artery Pressure 27/10 Cardiac Output 11 Cardiac Index 4.2 PHYSICAL EXAMINATION: Cooperative, at present in no acute distress. HEENT: Neck supple difficult to assess for JVD no carotid bruits Chest: Clear except for mild decreased airflow at the bases Cardiac: normal S1 and S2 with no gallops murmurs or rubs Abdomen: Soft and bowel sounds are present Extremitis: Trace edema mild tenderness Neurologiclly: Awake, aler, oriented with well-coordinated movements. - Labs CBC & Chem 7: 01/13/19 06:49 01/13/19 06:49 Labs: Abnormal Lab Results - Last 24 Hours (Table) 01/13/19 Range/Units 16:42 POC Glucose (mg/dL) 117 H (75-99) mg/dL Assessment and Plan Assessment: ASSESSMENT: 1. Anemia secondary to acute blood loss as anticipated. 2. Mild thrombocytopenia. 3. Coronary artery disease status post CABG. 4. Essential hypertension. 5. Hyperlipidemia. 6. Obesity. PLAN: Continue present medical regimen patient is stable and planned for discharge today. Follow-up outpatient reviewed with patient regarding activity and medications.
--- NOTE | 2019-01-16 13:12 | CDI ---
Documentation Clarification Form Date: From: Edith Mcguire Phone: Admit Date: 01/09/2019 5:40:00 AM Patient Name: John Guzmán Visit Number: [id number] Discharge Date: 01/13/2019 6:18:00 PM ATTENTION: The Clinical Documentation Specialists (CDI) and [facility] Coding Staff appreciate your assistance in clarifying documentation. Please respond to the clarification below the line at the bottom and electronically sign. The CDI & [facility] Coding staff will review the response and follow-up if needed. Please note: Queries are made part of the Legal Health Record. If you have any questions, please contact the author of this message via ITS. Dr. Chris Meza Heart failure is documented in the 01/12 consult and CHF per CXR. History/Risk Factors: CAD s/p CABG VS/Pulse OX: BNP: none Intraop SAMEER: preserved systolic function and mild mitral valve regurgitation and left ventricular hypertrophy 01/12 Chest X Ray: Bilateral infiltrate and small effusion correlate for CHF otherwise consider pneumonia. Treatment: IV Lasix x 3 In your professional opinion, can you please clarify the acuity and type of CHF if known? Systolic Heart Failure Diastolic Heart Failure Systolic & Diastolic Heart Failure Acute Chronic Acute on Chronic Heart Failure Unable to Determine Other, please specify See prog note addendum 01/19 MTDD
--- NOTE | 2019-01-19 14:20 | P.PN ---
Progress Note - Text Progress Note Date: 01/19/19 This is an addendum to the progress notes dictated, patient had diastolic congestive heart failure acute on chronic.
== END 2019-01-13 18:18 | disposition home health service (06) | DRG 235 ==
LOC: 2ORMAIN 05:40 → 2SICU 16:12 → 3SCARD 01-11 14:42
PROVIDERS: ADMIT Surgery; ATTEND Surgery
PROC: 06BP4ZZ Excision of Right Saphenous Vein, Percutaneous Endoscopic Approach (ICD-10-PCS; 2019-01-09)
PROC: 03BC4ZZ Excision of Left Radial Artery, Percutaneous Endoscopic Approach (ICD-10-PCS; 2019-01-09)
PROC: B246ZZ4 Ultrasonography of Right and Left Heart, Transesophageal (ICD-10-PCS; 2019-01-09)
PROC: 5A1221Z Performance of Cardiac Output, Continuous (ICD-10-PCS; 2019-01-09)
PROC: 4A1305C Monitoring of Arterial Flow, Coronary, Open Approach (ICD-10-PCS; 2019-01-09)
PROC: 02100Z9 Bypass Coronary Artery, One Artery from Left Internal Mammary, Open Approach (ICD-10-PCS; principal; 2019-01-09 08:00)
PROC: 021009W Bypass Coronary Artery, One Artery from Aorta with Autologous Venous Tissue, Open Approach (ICD-10-PCS; 2019-01-09 08:00)
PROC: 02100AW Bypass Coronary Artery, One Artery from Aorta with Autologous Arterial Tissue, Open Approach (ICD-10-PCS; 2019-01-09 08:00)
DX: I25.10 Atherosclerotic heart disease of native coronary artery without angina pectoris (principal); I50.33 Acute on chronic diastolic (congestive) heart failure; Z68.41 Body mass index [BMI] 40.0-44.9, adult; D62 Acute posthemorrhagic anemia; E87.2 Acidosis; E66.01 Morbid (severe) obesity due to excess calories; E11.42 Type 2 diabetes mellitus with diabetic polyneuropathy; D69.6 Thrombocytopenia, unspecified; I11.0 Hypertensive heart disease with heart failure; J44.9 Chronic obstructive pulmonary disease, unspecified; E78.5 Hyperlipidemia, unspecified; G47.33 Obstructive sleep apnea (adult) (pediatric); F32.9 Major depressive disorder, single episode, unspecified; F41.9 Anxiety disorder, unspecified; F10.20 Alcohol dependence, uncomplicated; F17.201 Nicotine dependence, unspecified, in remission; G25.81 Restless legs syndrome; M19.90 Unspecified osteoarthritis, unspecified site; Z71.3 Dietary counseling and surveillance; Z79.82 Long term (current) use of aspirin; Z79.899 Other long term (current) drug therapy; Z96.652 Presence of left artificial knee joint; Z87.828 Personal history of other (healed) physical injury and trauma; Z87.81 Personal history of (healed) traumatic fracture; Z87.01 Personal history of pneumonia (recurrent); Z99.89 Dependence on other enabling machines and devices; Z82.49 Family history of ischemic heart disease and other diseases of the circulatory system
CPT/HCPCS: 71045; 71046; 80048; 80053; 82330; 82805; 83735; 84100; 85025; 85027; 85520; 85610; 85730; 86850; 86891; 86900; 86901; 86920; 94002; 94640; 94760

== ENCOUNTER → 2019-08-01 | Outpatient (CLI) | payer MEDICARE, BC | END | disposition home or self-care (01) | LOC: CPPFTMAIN 12:56 | PROVIDERS: ATTEND Internal Medicine | DX: J98.8 Other specified respiratory disorders (principal) | CPT/HCPCS: 94060; 94726; 94729 ==

== ENCOUNTER → 2022-08-14 | Outpatient (CLI) | payer MEDICARE | END | disposition home or self-care (01) | LOC: LABWHC1 12:56 | PROVIDERS: ATTEND Internal Medicine Interventional Cardiology | DX: R94.6 Abnormal results of thyroid function studies (principal) | CPT/HCPCS: 36415; 84439 ==